=== PATIENT | female | born 1950 | race Asian ===

== ENCOUNTER 2018-06-16 05:47 | Inpatient (IN) | payer MEDICARE, MEDICAID ==
[~2018-06-16] VITALS: Ht 165.1 cm; Wt 72.6 kg
[2018-06-16] VITALS (7 sets, daily range): BP systolic 117–134; BP diastolic 65–89
--- NOTE | 2018-06-16 05:52 | Emergency Room Report ---
History of Present Illness General Chief Complaint: Chest Pain Source: Patient, EMS Present Illness HPI This is 67-year-old Telugu female with a history of high blood pressure and CAD. She had a stent placed 10 years ago. She presents with chief point of chest pain. She woke with chest pain about an hour and a half ago. Pain is in the midsternal going to the back. Pain was 8 out of 10. She called 911. She received nitroglycerin and aspirin. Pain much better now. No nausea no vomiting. No fever chills. No diaphoresis. Pain is sharp in nature. Allergies: Coded Allergies: No Known Allergies (Unverified , 06/16/18) Patient History Past Medical History: see triage record, old chart reviewed Past Surgical History: other Pertinent Family History: none Social History: Denies: smoking Last Menstrual Period: n/a Now: No Immunizations: other Reviewed Nursing Documentation: PMH: Agreed; PSxH: Agreed Review of Systems Eye: Denies: eye pain, blurred vision ENT: Denies: ear pain, nose congestion, throat swelling Respiratory: Denies: cough, shortness of breath Cardiovascular: Reports: chest pain; Denies: palpitations Gastrointestinal: Denies: abdominal pain, diarrhea, nausea, vomiting Musculoskeletal: Denies: back pain, joint pain Skin: Denies: rash Neurological: Denies: headache, numbness Endocrine: Denies: increased thirst, increased urine Hematologic/Lymphatic: Denies: easy bruising All Other Systems: negative except mentioned in HPI Physical Exam Vital Signs Date Time Temp Pulse Resp B/P (MAP) Pulse Ox O2 Delivery O2 Flow Rate FiO2 06/16/18 05:36 98.8 68 20 146/98 99 Room Air vitals normal Sp02 EP Interpretation: reviewed, normal General Appearance: well appearing, no apparent distress, alert Head: normocephalic, atraumatic Eyes: bilateral eye PERRL, bilateral eye EOMI ENT: hearing grossly normal, normal pharynx Neck: full range of motion, supple, no meningismus Respiratory: chest non-tender, lungs clear, normal breath sounds Cardiovascular #1: regular rate, rhythm, no murmur Gastrointestinal: normal bowel sounds, non tender, no mass, no organomegaly, no bruit, non-distended Musculoskeletal: back normal, gait/station normal, normal range of motion Psychiatric: mood/affect normal Skin: warm/dry Medical Decision Making Diagnostic Impression: Primary Impression: Chest pain Qualified Codes: R07.9 - Chest pain, unspecified Additional Impression: ACS (acute coronary syndrome) ER Course Patient with chest pain. She has risk factor with previous stents. Pain resolved after nitroglycerin and aspirin here. Based on her risk factor, she will be admitted versus transfer based on insurance. Labs, chest x-ray, EKG ordered. Patient will be admitted here. I contacted Dr. Olmstead for admission. EKG Diagnostic Results Rate: normal Rhythm: NSR ST Segments: no acute changes Rhythm Strip Diag. Results Rhythm Strip Time: 05:51 EP Interpretation: yes Rate: 68 Rhythm: NSR, no PVC's, no ectopy Chest X-Ray Diagnostic Results Chest X-Ray Diagnostic Results : Chest X-Ray Ordered: Yes # of Views/Limited/Complete: 1 View Indication: Chest Pain EP Interpretation: Yes Interpretation: no consolidation, no effusion, no pneumothorax, no acute cardiopulmonary disease Impression: No acute disease Electronically Signed by: Yimi Gomez MD Last Vital Signs Date Time Temp Pulse Resp B/P (MAP) Pulse Ox O2 Delivery O2 Flow Rate FiO2 06/16/18 05:36 98.8 68 20 146/98 99 Room Air Status: improved Disposition: ADMITTED INPATIENT Condition: Serious Scripts Unable to Obtain Active Prescriptions or Reported Meds Yimi Gomez MD Jun 16, 2018 05:52
[2018-06-16] MEDS ORDERED: Nitroglycerin 2% oint pkt TOPIC ONE (06:00)
[2018-06-16 06:06] LABS: BASOPHILS % (AUTO) 0.2 % (0.0-2.0); EOSINOPHILS % (AUTO) 0.1 % (0.0-3.0); HEMATOCRIT 41.1 % (37.0-47.0); LYMPHOCYTES % (AUTO) 9.9 % (20.0-45.0); MEAN CORPUSCULAR VOLUME 89 FL (80-99); MONOCYTES % (AUTO) 5.6 % (1.0-10.0); NEUTROPHILS % (AUTO) 84.1 % (45.0-75.0); PLATELET COUNT 207 K/UL (150-450); RED BLOOD COUNT 4.61 M/UL (4.20-5.40); RED CELL DISTRIBUTION WIDTH 10.9 % (11.6-14.8); WHITE BLOOD COUNT 11.7 K/UL (4.8-10.8)
[2018-06-16 06:14] LABS: ANION GAP 9 mmol/L (5-15); BLOOD UREA NITROGEN 21 mg/dL (7-18); CALCIUM 8.6 MG/DL (8.5-10.1); CARBON DIOXIDE 26 MMOL/L (21-32); CHLORIDE 105 MMOL/L (98-107); CREATININE 0.6 MG/DL (0.55-1.30); POTASSIUM 4.1 MMOL/L (3.5-5.1); SODIUM 139 MMOL/L (136-145)
[2018-06-16 06:28] LABS: ALANINE AMINOTRANSFERASE 46 U/L (12-78); ALBUMIN 3.4 G/DL (3.4-5.0); ALBUMIN/GLOBULIN RATIO 0.8 (1.0-2.7); ALKALINE PHOSPHATASE 175 U/L (46-116); ASPARTATE AMINO TRANSFERASE 67 U/L (15-37); BILIRUBIN,TOTAL 0.7 MG/DL (0.2-1.0); CKMB 1.1 NG/ML (0.0-3.6); CREATINE KINASE 65 U/L (26-308)
[2018-06-16] MEDS ORDERED: dilTIAZem HCl 25mg/5ml Inj IV PRN (07:15)
[2018-06-16] MEDS ORDERED: Nitroglycerin Subl 0.4mg tab SL PRN (07:15)
[2018-06-16] MEDS ORDERED: Miralax 17gm pkt ORAL PRN (07:15)
[2018-06-16] MEDS ORDERED: Albuterol/Ipratropium 3ml neb HHN PRN (07:15)
[2018-06-16] MEDS ORDERED: Morphine Sulfate 4mg/ml Inj (IV/IM USE ONLY) IVP PRN (07:15)
[2018-06-16] MEDS ORDERED: Ketorolac 30mg Inj IV PRN (07:15)
[2018-06-16] MEDS ORDERED: Enalaprilat 2.5mg/2ml Inj IV PRN (07:15)
[2018-06-16] MEDS ORDERED: ALENDRONAT70 MG/75 M PO (09:46)
[2018-06-16] MEDS ORDERED: LEVOCARNITINE330 MG ORAL (09:46)
[2018-06-16] MEDS ORDERED: DICYCLOMINE HCL20 M1 PO (09:46)
[2018-06-16] MEDS ORDERED: VITAMIN D400 INTLU ORAL (09:46)
[2018-06-16] MEDS ORDERED: METOPROLOL SUCC25 MG ORAL (09:46)
[2018-06-16] MEDS ORDERED: ATORVASTATIN CA20 MG ORAL (09:46)
[2018-06-16] MEDS ORDERED: LEVOCARNITINE330 M1 PO (09:46)
[2018-06-16] MEDS ORDERED: DIPHENOXYLATE-1 EACH PO (09:46)
[2018-06-16] MEDS ORDERED: OMEPRAZOLE20 M2 ORAL (09:46)
[2018-06-16] MEDS ORDERED: ASPIRIN EC81 MG ORAL (09:46)
[2018-06-16] MEDS ORDERED: VASCAZEN CAPSU1 EACH PO (09:46)
[2018-06-16] MEDS ORDERED: LOSARTAN POTAS100 MG ORAL (09:46)
[2018-06-16] MEDS: Aspirin Baby 81mg ORAL SCH (10:30)
[2018-06-16] MEDS: Heparin 5000 units/ml inj SUBQ SCH ×2 (10:31→23:11)
--- NOTE | 2018-06-16 13:47 | Diagnostic Imaging Report ---
Indication: Chest pain Comparison: None A single view chest radiograph was obtained. Findings: Vascular congestion mild interstitial edema suspected. Heart is enlarged. Aorta is mildly enlarged. Bones are osteopenic. IMPRESSION: Suspected CHF
--- NOTE | 2018-06-16 15:12 | Cardiology Report ---
APPROVED REPORT EXAM: Two-dimensional and M-mode echocardiogram with Doppler and color Doppler. INDICATION Left ventricular function M-Mode DIMENSIONS IVSd1.3 (0.7-1.1cm)Left Atrium (MM)3.7 (1.6-4.0cm) LVDd3.1 (3.5-5.6cm)Aortic Root2.7 (2.0-3.7cm) PWd1.5 (0.7-1.1cm)Aortic Cusp Exc.2.3 (1.5-2.0cm) LVDs1.6 (2.5-4.0cm) PWs1.4 cm Normal left ventricular chamber size, systolic function and wall motion. Left ventricular ejection fraction estimated to be 60 %. Mild left ventricular hypertrophy. Anterior Echo-free space, may be due to pericardial fat or effusion. All other cardiac chamber sizes are within normal limits. Focal aortic valve sclerosis with adequate cusp excursion. Thickened mitral valve leaflets with normal excursion. Mild mitral annulus and aortic root calcification. Pulmonic valve not well visualized. Normal tricuspid valve structure. IVC measures at 2.0 cm with physiological collapse, suggestive of increased RA pressure. A color flow and spectral Doppler study was performed and revealed: No aortic insufficiency. No mitral regurgitation. Mitral diastolic velocities suggest mild left ventricular diastolic dysfunction (Grade I). Mild tricuspid regurgitation. Tricuspid systolic velocities suggests peak right ventricular systolic pressure of 46 mmHg, consistent with moderate pulmonary hypertension. Trace pulmonic regurgitation present.
--- NOTE | 2018-06-16 15:57 | Cardiology Report ---
APPROVED REPORT EKG Measurement Heart [id number] Normal sinus rhythm Normal ECG
[2018-06-17] VITALS: BP 152/85
[2018-06-17 07:54] LABS: BASOPHILS % (AUTO) 0.2 % (0.0-2.0); EOSINOPHILS % (AUTO) 0.1 % (0.0-3.0); HEMATOCRIT 41.8 % (37.0-47.0); HEMOGLOBIN 14.2 G/DL (12.0-16.0); LYMPHOCYTES % (AUTO) 13.9 % (20.0-45.0); MEAN CORPUSCULAR VOLUME 89 FL (80-99); MONOCYTES % (AUTO) 7.7 % (1.0-10.0); NEUTROPHILS % (AUTO) 78.1 % (45.0-75.0); PLATELET COUNT 219 K/UL (150-450); RED BLOOD COUNT 4.68 M/UL (4.20-5.40); RED CELL DISTRIBUTION WIDTH 11.2 % (11.6-14.8); WHITE BLOOD COUNT 8.2 K/UL (4.8-10.8)
[2018-06-17 08:00] VITALS: BP 122/82
--- NOTE | 2018-06-17 08:02 | Consultation ---
History of Present Illness General Date patient seen: Jun 17, 2018 Time patient seen: 07:00 Chief Complaint: Chest Pain Referring physician: dr Olmstead Reason for Consultation: chest pain Present Illness HPI 67 y/old female with PMH of hypertension, hyperlipidemia, coronary artery disease with stent placement about 10 years ago, presented to emergency department with complaint of chest pain. Pain located midsternally and radiated to the back , sharp , 8 out of 10 on a scale of 1-10. Patient called paramedics . En route to the hospital , she received nitroglycerin and aspirin; pain improved . No nausea no vomiting No fever no chills No diaphoresis No shortness of breath. Upon evaluation vital signs revealed slightly elevated blood pressure 146/98, pulse oximetry stable on room air. Laboratory workup revealed mild leukocytosis 11.7. Stable hemoglobin and hematocrit. Troponin negative. EKG revealed normal sinus rhythm , no acute ischemic changes. Stable electrolytes. BUN 21 , creatinine 0.6 Glucose 166 AST 67. Chest x-ray revealed vascular congestion and mild interstitial edema, probable CHF. patient was admitted for further management. This am denies chest pain, reports productive cough Allergies: Coded Allergies: No Known Allergies (Unverified , 06/16/18) Medication History Scheduled Aspirin Ec* (Aspirin Ec*), 81 MG ORAL DAILY, (Reported) Atorvastatin Calcium* (Atorvastatin Calcium*), 20 MG ORAL BEDTIME, (Reported) Levocarnitine (Levocarnitine), 990 MG ORAL THREE TIMES A DAY, (Reported) Losartan Potassium (Losartan Potassium), 25 MG ORAL DAILY, (Reported) Metoprolol Succinate* (Metoprolol Succinate*), 25 MG ORAL DAILY, (Reported) Omeprazole (Omeprazole), 20 MG ORAL DAILY, (Reported) Vitamin D (Vitamin D3), 2,000 UNITS ORAL DAILY, (Reported) Miscellaneous Medications Alendronate Sodium (Alendronate Sodium), 70 MG PO, (Reported) Dicyclomine Hcl (Dicyclomine Hcl), 20 MG PO, (Reported) Diphenoxylate Hcl/Atropine (Diphenoxylate-Atropine Tablet), 1 EACH PO, (Reported ) Levocarnitine (levOCARNitine), 5 MG PO, (Reported) [place]-3S/Dha/Epa/Fish Oil (Vascazen Capsule), 1 EACH PO, (Reported) Patient History Healthcare decision maker [place] Resuscitation status Full Code Advanced Directive on File Past Medical/Surgical History Past Medical/Surgical History: (1) CAD S/P percutaneous coronary angioplasty (2) Hyperlipidemia (3) HTN (hypertension) Review of Systems Constitutional: Reports: weakness Eye: Reports: no symptoms ENT: Reports: no symptoms Respiratory: Reports: see HPI Cardiovascular: Reports: see HPI Gastrointestinal: Reports: no symptoms Genitourinary: Reports: no symptoms Musculoskeletal: Reports: no symptoms Skin: Reports: no symptoms Psychiatric: Reports: no symptoms Neurological: Reports: no symptoms Endocrine: Reports: no symptoms ROS Narrative limited due to limited Vietnamese from patient Physical Exam General Appearance: no apparent distress, alert - awake, responsive, Lines, tubes and drains: peripheral Neck: non-tender, supple Respiratory/Chest: lungs clear, no respiratory distress, no accessory muscle use Cardiovascular/Chest: normal peripheral pulses, normal rate, regular rhythm - SR on tele Abdomen: normal bowel sounds, non tender, soft Extremities: normal range of motion, non-tender, no calf tenderness, normal capillary refill Skin Exam: warm/dry Neurologic: no motor/sensory deficits, alert, oriented x 3, responsive Musculoskeletal: normal muscle bulk Last 24 Hour Vital Signs Date Time Temp Pulse Resp B/P (MAP) Pulse Ox O2 Delivery O2 Flow Rate FiO2 06/17/18 04:00 70 06/17/18 00:00 73 06/17/18 00:00 97.9 87 20 152/85 (107) 99 06/16/18 23:18 Room Air 06/16/18 20:52 96.3 74 133/87 (102) 94 06/16/18 20:30 98.6 79 22 124/84 99 Room Air 06/16/18 20:00 73 06/16/18 18:58 98.6 74 22 117/80 99 Room Air 06/16/18 16:49 98.2 88 22 132/74 100 Room Air 06/16/18 12:02 98.2 78 20 129/65 99 Room Air 06/16/18 09:38 98.2 66 18 134/86 96 Room Air Intake and Output 06/16/18 06/17/18 18:59 06:59 Output Total 0 ml Balance 0 ml Output Urine Total 0 ml # Voids 1 Laboratory Tests Test 06/17/18 05:55 White Blood Count Pending Red Blood Count Pending Hemoglobin Pending Hematocrit Pending Mean Corpuscular Volume Pending Mean Corpuscular Hemoglobin Pending Mean Corpuscular Hemoglobin Concent Pending Red Cell Distribution Width Pending Platelet Count Pending Mean Platelet Volume Pending Neutrophils (%) (Auto) Pending Lymphocytes (%) (Auto) Pending Monocytes (%) (Auto) Pending Eosinophils (%) (Auto) Pending Basophils (%) (Auto) Pending Prothrombin Time Pending Prothromb Time International Ratio Pending Activated Partial Thromboplast Time Pending Troponin I Pending C-Reactive Protein, Quantitative Pending Triglycerides Level Pending Cholesterol Level Pending LDL Cholesterol Pending HDL Cholesterol Pending Cholesterol/HDL Ratio Pending Thyroid Stimulating Hormone (TSH) Pending Height (Feet): 5 Height (Inches): 5.00 Weight (Pounds): 160 Medications Current Medications Medications (Trade) Dose Ordered Sig/Eddie Route PRN Reason Start Time Stop Time Status Last Admin Dose Admin Acetaminophen (Tylenol) 650 mg Q4H PRN ORAL FEVER 06/16/18 07:15 07/16/18 07:14 Albuterol/ Ipratropium (Albuterol/ Ipratropium) 3 ml Q4H PRN HHN Shortness of Breath 06/16/18 07:15 06/21/18 07:14 Aspirin (ASA) 162 mg DAILY ORAL 06/16/18 09:00 07/16/18 08:59 06/16/18 10:30 Diltiazem HCl (Cardizem) 10 mg EVERY HOUR PRN IV heart rate more than 120, 06/16/18 07:15 07/16/18 07:14 Enalaprilat (Vasotec) 2.5 mg EVERY 6 HOURS PRN IV sbp more than 160 06/16/18 07:15 07/16/18 07:14 Heparin Sodium (Porcine) (Heparin 5000 units/ml) 5,000 units EVERY 12 HOURS SUBQ 06/16/18 09:00 07/16/18 08:59 06/16/18 23:11 Ketorolac Tromethamine (Toradol 30mg) 30 mg Q6H PRN IV moderate pain ( 4-6) 06/16/18 07:15 06/21/18 07:14 Morphine Sulfate (Morphine Sulfate) 2 mg Q4H PRN IVP severe Pain (Pain Scale 7-10) 06/16/18 07:15 06/23/18 07:14 06/17/18 06:50 Nitroglycerin (Ntg) 0.4 mg Q5M PRN SL Prn Chest Pain 06/16/18 07:15 07/16/18 07:14 Ondansetron HCl (Zofran) 4 mg Q6H PRN IVP Nausea & Vomiting 06/16/18 07:15 07/16/18 07:14 Pantoprazole (Protonix) 40 mg EVERY 12 HOURS ORAL 06/17/18 09:00 07/17/18 08:59 Polyethylene Glycol (Miralax) 17 gm DAILYPRN PRN ORAL Constipation 06/16/18 07:15 07/16/18 07:14 Temazepam (Restoril) 15 mg HSPRN PRN ORAL Insomnia 06/16/18 07:15 06/23/18 07:14 Assessment/Plan Status Narrative ASSESSMENT Chest pain , rule out ACS CAD with history of stent placement/PTCA HTN Hyperlipidemia Mild dehydration Elevated glucose Elevated LFT PLAN OF CARE tele Serial troponin ,EKG Echo Check pro BNP fup with CXR O2 as needed titrate, HHN prn ASA, BB ,Statin Nitro prn a/tussive prn pain management BP management with BB and optimize further prn check lipid panel ,TSH, HgA1c, TSH DVT, GI prophylaxis case discussed and evaluated by supervising physician Charlene Warner NP Jun 17, 2018 08:02
[2018-06-17 08:03] LABS: INR 0.9 (0.9-1.1)
[2018-06-17 08:29] LABS: CHOLESTEROL 122 MG/DL (< 200); HDL CHOLESTEROL 67 MG/DL (40-60); TRIGLYCERIDES 48 MG/DL (30-150)
[2018-06-17] MEDS: Metoprolol Succinate XL 25mg tab ORAL SCH (08:44)
[2018-06-17] MEDS: Aspirin Baby 81mg ORAL SCH (08:44)
[2018-06-17] MEDS: Heparin 5000 units/ml inj SUBQ SCH ×2 (08:45→20:35)
[2018-06-17] MEDS ORDERED: guaiFENesin w/Codeine 5ml Liq ud ORAL PRN (09:00)
--- NOTE | 2018-06-17 09:08 | Diagnostic Imaging Report ---
EXAM: XR Chest, 1 View CLINICAL HISTORY: SOB TECHNIQUE: Frontal view of the chest. COMPARISON: Cxr 06/16/18 FINDINGS: Lungs: Improved vascular congestion.. No consolidation. Pleural space: Unremarkable. No pneumothorax. Heart: Mild cardiomegaly. Mediastinum: Unremarkable. Bones/joints: Mild degenerative changes of the spine. IMPRESSION: Improved vascular congestion.
[2018-06-17 12:00] VITALS: BP 115/80
[2018-06-17] MEDS ORDERED: guaiFENesin 100mg/5ml Liq ud ORAL PRN (13:00)
--- NOTE | 2018-06-17 15:07 | Cardiology Progress Note ---
Assessment/Plan Assessment/Plan [id number] Objective Last 24 Hour Vital Signs Date Time Temp Pulse Resp B/P (MAP) Pulse Ox O2 Delivery O2 Flow Rate FiO2 06/17/18 12:00 97.0 64 20 115/80 (92) 94 06/17/18 12:00 69 06/17/18 09:00 Room Air 06/17/18 08:44 77 122/82 06/17/18 08:00 79 06/17/18 08:00 97.3 77 20 122/82 (95) 93 06/17/18 04:00 70 06/17/18 00:00 73 06/17/18 00:00 97.9 87 20 152/85 (107) 99 06/16/18 23:18 Room Air 06/16/18 20:52 96.3 74 133/87 (102) 94 06/16/18 20:30 98.6 79 22 124/84 99 Room Air 06/16/18 20:00 73 06/16/18 18:58 98.6 74 22 117/80 99 Room Air 06/16/18 16:49 98.2 88 22 132/74 100 Room Air Intake and Output 06/16/18 06/17/18 19:00 07:00 Output Total 0 ml Balance 0 ml Output Urine Total 0 ml # Voids 1 Laboratory Tests Test 06/17/18 05:55 White Blood Count 8.2 K/UL (4.8-10.8) Red Blood Count 4.68 M/UL (4.20-5.40) Hemoglobin 14.2 G/DL (12.0-16.0) Hematocrit 41.8 % (37.0-47.0) Mean Corpuscular Volume 89 FL (80-99) Mean Corpuscular Hemoglobin 30.4 PG (27.0-31.0) Mean Corpuscular Hemoglobin Concent 34.0 G/DL (32.0-36.0) Red Cell Distribution Width 11.2 % (11.6-14.8) L Platelet Count 219 K/UL (150-450) Mean Platelet Volume 6.3 FL (6.5-10.1) L Neutrophils (%) (Auto) 78.1 % (45.0-75.0) H Lymphocytes (%) (Auto) 13.9 % (20.0-45.0) L Monocytes (%) (Auto) 7.7 % (1.0-10.0) Eosinophils (%) (Auto) 0.1 % (0.0-3.0) Basophils (%) (Auto) 0.2 % (0.0-2.0) Prothrombin Time 9.8 SEC (9.30-11.50) Prothromb Time International Ratio 0.9 (0.9-1.1) Activated Partial Thromboplast Time 24 SEC (23-33) Hemoglobin A1c 5.9 % (4.3-6.0) Troponin I 0.010 ng/mL (0.000-0.056) C-Reactive Protein, Quantitative 1.0 mg/dL (0.00-0.90) H Pro-B-Type Natriuretic Peptide 109 pg/mL (0-125) Triglycerides Level 48 MG/DL (30-150) Cholesterol Level 122 MG/DL (< 200) LDL Cholesterol 49 mg/dL (<100) HDL Cholesterol 67 MG/DL (40-60) H Cholesterol/HDL Ratio 1.8 (3.3-4.4) L Thyroid Stimulating Hormone (TSH) 0.398 uiU/mL (0.358-3.740) Earl Melendez MD Jun 17, 2018 15:07
--- NOTE | 2018-06-17 15:14 | History & Physical ---
History and Physical History & Physicial Santos Olmstead MD Jun 17, 2018 15:14
[2018-06-17 16:00] VITALS: BP 112/81
[2018-06-17 20:00] VITALS: BP 119/85
[2018-06-17] MEDS ORDERED: Atorvastatin 20mg tab ORAL SCH (21:00)
[2018-06-18] VITALS (7 sets, daily range): BP systolic 103–135; BP diastolic 67–80
--- NOTE | 2018-06-18 | History and Physical Report ---
DATE OF ADMISSION: 06/16/2018 CHIEF COMPLAINT: Chest pain and shortness of breath. HISTORY OF PRESENT ILLNESS: This is a 67-year-old Faroese female with past medical history significant for hypertension, dyslipidemia, and coronary artery disease with history of stent placement over 10 years ago, who presented to the hospital complaining about chest pain. Woke up with the chest pain associated with shortness of breath. She stated that the pain is located in the midsternum area, radiated to the back, 8/10 in intensity. Subsequently, the patient was called EMS, which gave her nitroglycerin and aspirin, and then felt better. She denies any nausea or vomiting. She denies any fever, chills, or dysuria or frequency. Shortly after initial evaluation in the emergency room, the patient was admitted to the hospital with chest pain and possible acute coronary syndrome. PAST MEDICAL HISTORY/PAST SURGICAL HISTORY: As above. History of hypertension, dyslipidemia, and coronary artery disease with prior history of stent placement over 10 years ago. MEDICATIONS: Medications at home, please refer to medication reconciliation. ALLERGIES: No known drug allergies. SOCIAL HISTORY: The patient denies any smoking, alcohol, or drugs at this time. FAMILY HISTORY: Noncontributory. REVIEW OF SYSTEMS: Mostly as above. Denies any dysuria, frequency, or hematuria. Complained about chest pain. Denies any hemoptysis or hematochezia. Denies any bright red blood per rectum. Denies any loss of consciousness. PHYSICAL EXAMINATION: VITAL SIGNS: On admission, temperature 98.8, pulse of 68, respirations 20, and blood pressure 146/98. GENERAL: The patient is awake, responsive, in no acute distress. HEAD AND NECK: Pupils are equal and reactive to light. Anicteric. Neck was supple. No JVD. LUNGS: Good air entry. No wheezes or rales. HEART: S1 and S2. Regular rhythm. No murmurs or gallops. ABDOMEN: Soft, nondistended, and nontender. Positive bowel sounds. EXTREMITIES: No cyanosis, clubbing, or edema. NEUROLOGIC: Cranial nerves II through XII grossly intact. Motor is 5/5 in all extremities. RECTAL: Refused and deferred. GENITOURINARY: Refused and deferred. PSYCHIATRIC: Mood and affect is intact. LABORATORY AND DIAGNOSTIC DATA: On admission from the ER, WBC of 11.7, hemoglobin of 14, hematocrit of 41, and platelets is 207,000. First and second troponin is negative. Sodium 139, potassium 4.1, chloride 105, bicarb 20, BUN 21, and creatinine 0.6. Glucose is 166 and calcium is 8.6. AST of 67, ALT of 46, alkaline phosphatase of 175, total cholesterol is 122, CRP of 1.0, and hemoglobin A1c 5.9. Chest x-ray, suspected CHF. Repeat chest x-ray, improved vascular congestion. EKG was noted to be normotensive, ventricular rate of [address] elevation or T-wave inversion. ASSESSMENT: 1. Chest pain, possible acute coronary syndrome. 2. Coronary artery disease, status post PTCA with stent placement. 3. Dyslipidemia. 4. Hypertension. 5. The patient has elevated liver function as well. PLAN: Admit the patient to monitored unit. We will follow up laboratory. Discussed case with Dr. Earl Melendez from Cardiology and Dr. Golden from critical care. Code status is Full Code. DVT prophylaxis. Heparin subcutaneous. We will monitor the serial cardiac enzymes and if the enzymes are negative, consider to do a stress test. Santos Olmstead M.D. DR: WILL JOB#: [id number] CC:
--- NOTE | 2018-06-18 | Consultation ---
DATE OF CONSULTATION: 06/17/2018 CARDIOLOGY CONSULTATION CONSULTING PHYSICIAN: Earl Melendez M.D. REFERRING PHYSICIAN: Santos Olmstead M.D. REASON FOR REFERRAL: Chest pain. HISTORY OF PRESENT ILLNESS: This is a 67-year-old female, who has had a history of some kind of a cardiac catheterization a number of years ago at [facility], not sure although if she had any angioplasty or stents. The patient presented to the hospital with chest pain, tightness and pressure sensation in the center of chest, may be radiating to her head, which lasted approximately 15 minutes. She came to the emergency room, was admitted to the hospital. She indicates she was sweating a lot at that time. There is no PND. She has shortness of breath on exertion. There is no orthopnea and no palpitation. She has no occasional dizziness or lightheadedness on standing. The patient does walk on a regular basis. It is not clear if she actually gets any chest pain with activity, but she does have shortness of breath with activity according to herself. PAST MEDICAL HISTORY: Positive for high blood pressure and high cholesterol. No history of heart attack. No cancer. No stroke. No hepatitis or tuberculosis. No asthma or emphysema. No ulcers. No kidney problems, liver problems, thyroid problems, anemia, arthritis, HIV, or blood clots anywhere. She does have venous issues that she has had a doctor to deal with before. She is usually followed by mortgage protection specialist and has had a stress test as recently as a few months ago that was reportedly negative. REVIEW OF SYSTEMS: GASTROINTESTINAL: She has had nausea and she has had vomiting and she has had diarrhea. : Denies. PULMONARY: Denies. CONSTITUTIONAL: Denies, but she does have sweats. NEUROLOGICAL: Negative. ALLERGIES: She is not allergic to any medication. SOCIAL HISTORY: She does not smoke or drink alcoholic beverages. She lives at home. PHYSICAL EXAMINATION: GENERAL: Shows to be an elderly female, in no respiratory distress. NECK: Supple. No jugular venous distention. LUNGS: Clear to auscultation and percussion. CARDIAC: S1 is normal. S2 is normal. Regular rate and rhythm. No heaves, thrills, or gallops noted. ABDOMEN: Soft, nontender. Positive bowel sounds. EXTREMITIES: There is no clubbing, cyanosis, nor is there any edema. NEUROLOGICAL: She is awake, alert, responsive, in no apparent respiratory distress. LABORATORY AND DIAGNOSTIC DATA: Her blood tests show white count of 7.3, hemoglobin 11.1, and platelet count of 354. Three sets of cardiac enzymes are all negative. Amylase was 72, magnesium of 1.8. Phosphorus of 2.3. Sodium is 137, potassium 3.8, chloride 102, bicarbonate 22, BUN of 8, creatinine 0.9. Glucose of 154. Total cholesterol is 325 with LDL of 229, HDL of 77 and triglycerides of 135. INR is 1 and PTT of 27. Urinalysis shows 30 to 40 RBCs, 10 to 15 WBCs, many squamous epithelial noted. She has had cardiac enzymes that were negative on two separate occasions about a day apart. Only one total cholesterol of 122 with LDL of 49, HDL of 67. TSH is 0.38. ProBNP is only 109. A1c of 5.9. Sodium is 139, potassium 4.1, chloride 105, bicarb 26, BUN of 21, creatinine 0.6, glucose of 166. Alkaline phosphatase is 175 with albumin 3.4. INR is 0.9 and PTT of 24 with a white count of 8.2, hemoglobin 14.2, and platelet count 217. A chest x-ray performed in the emergency room shows improved vascular congestion. Echocardiogram performed yesterday shows ejection fraction 60%. Normal wall motion. Mild diastolic relaxation abnormality, pulmonary systolic pressure of 46. ASSESSMENT AND PLAN: 1. Chest pains. 2. Dyspnea on exertion. 3. History of venous issues. Dr. Olmstead, this patient was seen in cardiac consultation. She has had 2 bouts of chest pains at least that we know of, once here today that she states lasted approximately 1 hour, and one that she had at home yesterday. She will have a 3rd and 4th set of cardiac enzymes for now and because her chest pain is recurrent, I think it is reasonable to have a myocardial perfusion imaging performed. It is of note that her electrocardiogram has shown no significant ST-T wave abnormalities, although she does have a leftward directed axis, but no left axis deviation. The echocardiogram showed normal wall motion. Her cholesterol levels are not significantly elevated. Earl Melendez M.D. DR: LOPEZ JOB#: [id number] CC:
--- NOTE | 2018-06-18 07:33 | Pulmonology Progress Note ---
Assessment/Plan Assessment/Plan ASSESSMENT Chest pain possibly due to anxiety CAD with history of stent placement/PTCA HTN Hyperlipidemia Mild dehydration Elevated glucose Elevated LFT Anxiety disorder PLAN OF CARE tele serial troponin so far negative ,EKG no acute ischemic changes , thus r/out for acute [place] Echo with pEF, mild LVH RVSP of 46 c/w moderate pulm HTN , no WMA cardio follows pro BNP 109 O2 as needed titrate, HHN prn ASA, BB ,Statin stress test in am , if negative then chest pain possibly due to anxiety lipid panel stable Nitro prn venous Duplex BLE a/tussive prn pain management BP management with BB and optimize further prn - stable for now TSH WNL, [id number] DVT, GI prophylaxis psych follows anxiolytic prn case discussed and evaluated by supervising physician Subjective Allergies: Coded Allergies: No Known Allergies (Unverified , 06/16/18) Subjective denies chest pain, SOB pulse ox stable on RA Objective Last 24 Hour Vital Signs Date Time Temp Pulse Resp B/P (MAP) Pulse Ox O2 Delivery O2 Flow Rate FiO2 06/18/18 04:00 99.0 70 18 103/67 (79) 95 06/18/18 03:55 64 06/18/18 00:00 98.7 69 18 114/76 (89) 95 06/17/18 23:48 71 06/17/18 21:00 Room Air 06/17/18 20:51 83 06/17/18 20:00 98.4 70 18 119/85 (96) 95 06/17/18 16:00 98.2 63 20 112/81 (91) 94 06/17/18 16:00 67 06/17/18 12:00 97.0 64 20 115/80 (92) 94 06/17/18 12:00 69 06/17/18 09:00 Room Air 06/17/18 08:44 77 122/82 06/17/18 08:00 79 06/17/18 08:00 97.3 77 20 122/82 (95) 93 Intake and Output 06/17/18 06/18/18 19:00 07:00 Intake Total 230 ml 60 ml Output Total 320 ml Balance -90 ml 60 ml Intake Oral 230 ml Other 60 ml Output Urine Total 320 ml # Voids 4 1 Objective General Appearance: no apparent distress, alert - awake, responsive, Lines, tubes and drains: peripheral Neck: non-tender, supple Respiratory/Chest: lungs clear, no respiratory distress, no accessory muscle use Cardiovascular/Chest: normal peripheral pulses, normal rate, regular rhythm - SR on tele Abdomen: normal bowel sounds, non tender, soft Extremities: normal range of motion, non-tender, no calf tenderness, normal capillary refill Skin Exam: warm/dry Neurologic: no motor/sensory deficits, alert, oriented x 3, responsive Musculoskeletal: normal muscle bulk Current Medications Medications (Trade) Dose Ordered Sig/Eddie Route PRN Reason Start Time Stop Time Status Last Admin Dose Admin Acetaminophen (Tylenol) 650 mg Q4H PRN ORAL FEVER 06/16/18 07:15 07/16/18 07:14 06/17/18 23:10 Albuterol/ Ipratropium (Albuterol/ Ipratropium) 3 ml Q4H PRN HHN Shortness of Breath 06/16/18 07:15 06/21/18 07:14 Aspirin (ASA) 162 mg DAILY ORAL 06/16/18 09:00 07/16/18 08:59 06/17/18 08:44 Atorvastatin Calcium (Lipitor) 20 mg BEDTIME ORAL 06/17/18 21:00 07/17/18 20:59 06/17/18 20:33 Diltiazem HCl (Cardizem) 10 mg EVERY HOUR PRN IV heart rate more than 120, 06/16/18 07:15 07/16/18 07:14 Enalaprilat (Vasotec) 2.5 mg EVERY 6 HOURS PRN IV sbp more than 160 06/16/18 07:15 07/16/18 07:14 Guaifenesin (Robitussin) 100 mg Q4H PRN ORAL For Cough 06/17/18 13:00 07/17/18 12:59 06/17/18 22:04 Heparin Sodium (Porcine) (Heparin 5000 units/ml) 5,000 units EVERY 12 HOURS SUBQ 06/16/18 09:00 07/16/18 08:59 06/17/18 20:35 Ketorolac Tromethamine (Toradol 30mg) 30 mg Q6H PRN IV moderate pain ( 4-6) 06/16/18 07:15 06/21/18 07:14 Metoprolol Succinate (Toprol XL) 25 mg DAILY ORAL 06/17/18 09:00 07/17/18 08:59 Morphine Sulfate (Morphine Sulfate) 2 mg Q4H PRN IVP severe Pain (Pain Scale 7-10) 06/16/18 07:15 06/23/18 07:14 06/17/18 06:50 Nitroglycerin (Ntg) 0.4 mg Q5M PRN SL Prn Chest Pain 06/16/18 07:15 07/16/18 07:14 Ondansetron HCl (Zofran) 4 mg Q6H PRN IVP Nausea & Vomiting 06/16/18 07:15 07/16/18 07:14 Pantoprazole (Protonix) 40 mg EVERY 12 HOURS ORAL 06/17/18 09:00 07/17/18 08:59 06/17/18 20:33 Polyethylene Glycol (Miralax) 17 gm DAILYPRN PRN ORAL Constipation 06/16/18 07:15 07/16/18 07:14 Regadenoson (Lexiscan) 0.4 mg ONCE PRN IV STRESS TEST 06/19/18 06:00 06/21/18 05:59 Temazepam (Restoril) 15 mg HSPRN PRN ORAL Insomnia 06/16/18 07:15 06/23/18 07:14 Charlene Warner NP Jun 18, 2018 07:33
[2018-06-18 07:49] LABS: BASOPHILS % (AUTO) 0.5 % (0.0-2.0); EOSINOPHILS % (AUTO) 0.2 % (0.0-3.0); HEMATOCRIT 39.7 % (37.0-47.0); HEMOGLOBIN 13.7 G/DL (12.0-16.0); LYMPHOCYTES % (AUTO) 14.7 % (20.0-45.0); MEAN CORPUSCULAR VOLUME 90 FL (80-99); MONOCYTES % (AUTO) 5.8 % (1.0-10.0); NEUTROPHILS % (AUTO) 78.7 % (45.0-75.0); PLATELET COUNT 227 K/UL (150-450); RED BLOOD COUNT 4.41 M/UL (4.20-5.40); RED CELL DISTRIBUTION WIDTH 11.1 % (11.6-14.8); WHITE BLOOD COUNT 9.7 K/UL (4.8-10.8)
[2018-06-18 08:39] LABS: ALANINE AMINOTRANSFERASE 1942 U/L (12-78); ALBUMIN 3.2 G/DL (3.4-5.0); ALBUMIN/GLOBULIN RATIO 0.9 (1.0-2.7); ALKALINE PHOSPHATASE 372 U/L (46-116); ANION GAP 8 mmol/L (5-15); ASPARTATE AMINO TRANSFERASE 673 U/L (15-37); BILIRUBIN,TOTAL 1.1 MG/DL (0.2-1.0); BLOOD UREA NITROGEN 17 mg/dL (7-18); CALCIUM 8.2 MG/DL (8.5-10.1); CARBON DIOXIDE 27 MMOL/L (21-32); CHLORIDE 107 MMOL/L (98-107); CREATININE 0.7 MG/DL (0.55-1.30); POTASSIUM 4.3 MMOL/L (3.5-5.1); SODIUM 142 MMOL/L (136-145)
[2018-06-18 08:51] LABS: BILIRUBIN,DIRECT 0.5 MG/DL (0.0-0.3)
[2018-06-18] MEDS: Aspirin Baby 81mg ORAL SCH (09:28)
[2018-06-18] MEDS: Heparin 5000 units/ml inj SUBQ SCH ×2 (09:30→20:32)
[2018-06-18] MEDS: Metoprolol Succinate XL 25mg tab ORAL SCH (10:15)
--- NOTE | 2018-06-18 14:44 | Cardiology Progress Note ---
Assessment/Plan Assessment/Plan 1. Chest pains. 2. Dyspnea on exertion. 3. History of venous issues. 4. Abnormal LFTS dc statin for now in light of elevated of abn lfts will have stress test with exercise if possible repeat lfts Subjective Cardiovascular: Denies: chest pain, lightheadedness, palpitations Respiratory: Denies: shortness of breath Gastrointestinal/Abdominal: Denies: abdominal pain Genitourinary: Denies: burning Objective Last 24 Hour Vital Signs Date Time Temp Pulse Resp B/P (MAP) Pulse Ox O2 Delivery O2 Flow Rate FiO2 06/18/18 12:00 97.9 79 20 135/67 (89) 100 06/18/18 12:00 77 06/18/18 10:15 72 125/87 06/18/18 09:00 Room Air 06/18/18 08:00 97.9 74 20 110/79 (89) 94 06/18/18 08:00 80 06/18/18 04:00 99.0 70 18 103/67 (79) 95 06/18/18 03:55 64 06/18/18 00:00 98.7 69 18 114/76 (89) 95 06/17/18 23:48 71 06/17/18 21:00 Room Air 06/17/18 20:51 83 06/17/18 20:00 98.4 70 18 119/85 (96) 95 06/17/18 16:00 98.2 63 20 112/81 (91) 94 06/17/18 16:00 67 General Appearance: alert Neck: supple Cardiovascular: normal rate, regular rhythm Respiratory/Chest: lungs clear Abdomen: normal bowel sounds, non tender, soft Extremities: no swelling Intake and Output 06/17/18 06/18/18 18:59 06:59 Intake Total 230 ml 60 ml Output Total 320 ml Balance -90 ml 60 ml Intake Oral 230 ml Other 60 ml Output Urine Total 320 ml # Voids 4 1 Laboratory Tests Test 06/18/18 05:50 White Blood Count 9.7 K/UL (4.8-10.8) Red Blood Count 4.41 M/UL (4.20-5.40) Hemoglobin 13.7 G/DL (12.0-16.0) Hematocrit 39.7 % (37.0-47.0) Mean Corpuscular Volume 90 FL (80-99) Mean Corpuscular Hemoglobin 31.0 PG (27.0-31.0) Mean Corpuscular Hemoglobin Concent 34.4 G/DL (32.0-36.0) Red Cell Distribution Width 11.1 % (11.6-14.8) L Platelet Count 227 K/UL (150-450) Mean Platelet Volume 6.5 FL (6.5-10.1) Neutrophils (%) (Auto) 78.7 % (45.0-75.0) H Lymphocytes (%) (Auto) 14.7 % (20.0-45.0) L Monocytes (%) (Auto) 5.8 % (1.0-10.0) Eosinophils (%) (Auto) 0.2 % (0.0-3.0) Basophils (%) (Auto) 0.5 % (0.0-2.0) Sodium Level 142 MMOL/L (136-145) Potassium Level 4.3 MMOL/L (3.5-5.1) Chloride Level 107 MMOL/L (98-107) Carbon Dioxide Level 27 MMOL/L (21-32) Anion Gap 8 mmol/L (5-15) Blood Urea Nitrogen 17 mg/dL (7-18) Creatinine 0.7 MG/DL (0.55-1.30) Estimat Glomerular Filtration Rate > 60 mL/min (>60) Glucose Level 146 MG/DL (74-106) H Calcium Level 8.2 MG/DL (8.5-10.1) L Total Bilirubin 1.1 MG/DL (0.2-1.0) H Direct Bilirubin 0.5 MG/DL (0.0-0.3) H Aspartate Amino Transf (AST/SGOT) 673 U/L (15-37) H Alanine Aminotransferase (ALT/SGPT) 1942 U/L (12-78) H Alkaline Phosphatase 372 U/L (46-116) H Troponin I 0.000 ng/mL (0.000-0.056) Total Protein 6.8 G/DL (6.4-8.2) Albumin 3.2 G/DL (3.4-5.0) L Globulin 3.6 g/dL Albumin/Globulin Ratio 0.9 (1.0-2.7) L Earl Melendez MD Jun 18, 2018 14:44
--- NOTE | 2018-06-18 22:09 | Internal Med Progress Note ---
Subjective Physician Name Santos Olmstead Attending Physician Santos Olmstead MD Current Medications Medications (Trade) Dose Ordered Sig/Eddie Route PRN Reason Start Time Stop Time Status Last Admin Dose Admin Acetaminophen (Tylenol) 650 mg Q4H PRN ORAL FEVER 06/16/18 07:15 07/16/18 07:14 06/17/18 23:10 Albuterol/ Ipratropium (Albuterol/ Ipratropium) 3 ml Q4H PRN HHN Shortness of Breath 06/16/18 07:15 06/21/18 07:14 Aspirin (ASA) 162 mg DAILY ORAL 06/16/18 09:00 07/16/18 08:59 06/18/18 09:28 Diltiazem HCl (Cardizem) 10 mg EVERY HOUR PRN IV heart rate more than 120, 06/16/18 07:15 07/16/18 07:14 Enalaprilat (Vasotec) 2.5 mg EVERY 6 HOURS PRN IV sbp more than 160 06/16/18 07:15 07/16/18 07:14 Guaifenesin (Robitussin) 100 mg Q4H PRN ORAL For Cough 06/17/18 13:00 07/17/18 12:59 06/17/18 22:04 Heparin Sodium (Porcine) (Heparin 5000 units/ml) 5,000 units EVERY 12 HOURS SUBQ 06/16/18 09:00 07/16/18 08:59 06/18/18 20:32 Ketorolac Tromethamine (Toradol 30mg) 30 mg Q6H PRN IV moderate pain ( 4-6) 06/16/18 07:15 06/21/18 07:14 Metoprolol Succinate (Toprol XL) 25 mg DAILY ORAL 06/17/18 09:00 07/17/18 08:59 06/18/18 10:15 Morphine Sulfate (Morphine Sulfate) 2 mg Q4H PRN IVP severe Pain (Pain Scale 7-10) 06/16/18 07:15 06/23/18 07:14 06/17/18 06:50 Nitroglycerin (Ntg) 0.4 mg Q5M PRN SL Prn Chest Pain 06/16/18 07:15 07/16/18 07:14 Ondansetron HCl (Zofran) 4 mg Q6H PRN IVP Nausea & Vomiting 06/16/18 07:15 07/16/18 07:14 Pantoprazole (Protonix) 40 mg EVERY 12 HOURS ORAL 06/17/18 09:00 07/17/18 08:59 06/18/18 20:32 Polyethylene Glycol (Miralax) 17 gm DAILYPRN PRN ORAL Constipation 06/16/18 07:15 07/16/18 07:14 Regadenoson (Lexiscan) 0.4 mg ONCE PRN IV STRESS TEST 06/19/18 06:00 06/21/18 05:59 Temazepam (Restoril) 15 mg HSPRN PRN ORAL Insomnia 06/16/18 07:15 06/23/18 07:14 Allergies: Coded Allergies: No Known Allergies (Unverified , 06/16/18) Subjective awake, alert, responsive, No CP or SOB Objective Last Vital Signs Date Time Temp Pulse Resp B/P (MAP) Pulse Ox O2 Delivery O2 Flow Rate FiO2 06/18/18 21:00 Room Air 06/18/18 20:00 98.6 75 18 111/72 (85) 95 06/16/18 05:50 99 Laboratory Tests Test 06/18/18 05:50 White Blood Count 9.7 K/UL (4.8-10.8) Red Blood Count 4.41 M/UL (4.20-5.40) Hemoglobin 13.7 G/DL (12.0-16.0) Hematocrit 39.7 % (37.0-47.0) Mean Corpuscular Volume 90 FL (80-99) Mean Corpuscular Hemoglobin 31.0 PG (27.0-31.0) Mean Corpuscular Hemoglobin Concent 34.4 G/DL (32.0-36.0) Red Cell Distribution Width 11.1 % (11.6-14.8) L Platelet Count 227 K/UL (150-450) Mean Platelet Volume 6.5 FL (6.5-10.1) Neutrophils (%) (Auto) 78.7 % (45.0-75.0) H Lymphocytes (%) (Auto) 14.7 % (20.0-45.0) L Monocytes (%) (Auto) 5.8 % (1.0-10.0) Eosinophils (%) (Auto) 0.2 % (0.0-3.0) Basophils (%) (Auto) 0.5 % (0.0-2.0) Sodium Level 142 MMOL/L (136-145) Potassium Level 4.3 MMOL/L (3.5-5.1) Chloride Level 107 MMOL/L (98-107) Carbon Dioxide Level 27 MMOL/L (21-32) Anion Gap 8 mmol/L (5-15) Blood Urea Nitrogen 17 mg/dL (7-18) Creatinine 0.7 MG/DL (0.55-1.30) Estimat Glomerular Filtration Rate > 60 mL/min (>60) Glucose Level 146 MG/DL (74-106) H Calcium Level 8.2 MG/DL (8.5-10.1) L Total Bilirubin 1.1 MG/DL (0.2-1.0) H Direct Bilirubin 0.5 MG/DL (0.0-0.3) H Aspartate Amino Transf (AST/SGOT) 673 U/L (15-37) H Alanine Aminotransferase (ALT/SGPT) 1942 U/L (12-78) H Alkaline Phosphatase 372 U/L (46-116) H Troponin I 0.000 ng/mL (0.000-0.056) Total Protein 6.8 G/DL (6.4-8.2) Albumin 3.2 G/DL (3.4-5.0) L Globulin 3.6 g/dL Albumin/Globulin Ratio 0.9 (1.0-2.7) L Intake and Output 06/17/18 06/18/18 19:00 07:00 Intake Total 230 ml 60 ml Output Total 320 ml Balance -90 ml 60 ml Intake Oral 230 ml Other 60 ml Output Urine Total 320 ml # Voids 4 1 Objective General: No acute distress, awake and alert HEENT: NCAT, sclera anicteric, PERRL, EOMI. Neck: Supple, no significant jugular venous distention, Lungs: Good inspiratory effort, Bilateral air entry, no Wheeze or Rales. Heart: Regular rate and rhythm, normal S1/S2, no murmurs/gallops Abdomen: soft, nontender, nondistended. Normoactive bowel sounds. / Rectal: Refused and deferred. Extremities: No Cyanosis , clubbing or edema. Neuro: A&O x 3, Able to move all extremities Skin: warm, no rashes or lesions Psych: Normal mood and affect Assessment/Plan Assessment/Plan 1. Chest pain, possible acute coronary syndrome. 2. Coronary artery disease, status post PTCA with stent placement. 3. Dyslipidemia. 4. Hypertension. 5. Abnormal LFT PLAN: In monitored unit. Follow up laboratory in AM Dr. Earl Melendez from Cardiology Dr. Golden from Pulmonary / critical care. Code status: Full Code. DVT prophylaxis: Heparin subcutaneous. stress test in AM US abdomen GI consult with Dr. Joy Mckenna Lipitor. . Santos Olmstead MD Jun 18, 2018 22:09
[2018-06-19 04:00] VITALS: BP 122/84
[2018-06-19] MEDS ORDERED: Lexiscan 0.4mg/5ml syringe IV PRN (06:00)
[2018-06-19 08:00] VITALS: BP 120/89
[2018-06-19 08:21] LABS: ALANINE AMINOTRANSFERASE 1267 U/L (12-78); ALBUMIN 3.1 G/DL (3.4-5.0); ALBUMIN/GLOBULIN RATIO 0.7 (1.0-2.7); ALKALINE PHOSPHATASE 334 U/L (46-116); ANION GAP 7 mmol/L (5-15); ASPARTATE AMINO TRANSFERASE 248 U/L (15-37); BILIRUBIN,TOTAL 0.8 MG/DL (0.2-1.0); BLOOD UREA NITROGEN 15 mg/dL (7-18); CALCIUM 8.6 MG/DL (8.5-10.1); CARBON DIOXIDE 26 MMOL/L (21-32); CHLORIDE 106 MMOL/L (98-107); CREATININE 0.7 MG/DL (0.55-1.30); SODIUM 139 MMOL/L (136-145)
[2018-06-19] MEDS: Metoprolol Succinate XL 25mg tab ORAL SCH (09:00)
[2018-06-19] MEDS: Heparin 5000 units/ml inj SUBQ SCH ×2 (09:00→21:56)
[2018-06-19] MEDS: Aspirin Baby 81mg ORAL SCH (09:00)
--- NOTE | 2018-06-19 10:09 | General Progress Note ---
Assessment/Plan Assessment/Plan GI CONSULT Assessment - Abrupt symptomatic rise in LFT, suggestive of passed gallstone - CAD Recommendations - Cardiology evaluation - Follow LFT - Await abd Ultrasound - check hepatitis serologies and CK total Thank you Catia Hamilton MD Subjective Allergies: Coded Allergies: No Known Allergies (Unverified , 06/16/18) Objective Last 24 Hour Vital Signs Date Time Temp Pulse Resp B/P (MAP) Pulse Ox O2 Delivery O2 Flow Rate FiO2 06/19/18 08:00 97.5 72 17 120/89 (99) 94 06/19/18 04:00 64 06/19/18 04:00 97.2 66 18 122/84 (97) 95 06/19/18 00:00 72 06/18/18 23:33 98.7 67 18 124/80 (95) 95 06/18/18 21:00 Room Air 06/18/18 20:00 98.6 75 18 111/72 (85) 95 06/18/18 20:00 74 06/18/18 18:00 60 06/18/18 16:00 98.7 64 20 113/78 (90) 100 06/18/18 12:00 97.9 79 20 135/67 (89) 100 06/18/18 12:00 77 06/18/18 10:15 72 125/87 Intake and Output 06/18/18 06/19/18 19:00 07:00 Intake Total 480 ml 480 ml Output Total 2000 ml 2000 ml Balance -1520 ml -1520 ml Intake Oral 480 ml 480 ml Output Urine Total 0 ml Other 2000 ml 2000 ml # Voids 3 2 Laboratory Tests 06/19/18 07:10: Sodium Level 139, Potassium Level 4.0, Chloride Level 106, Carbon Dioxide Level 26, Anion Gap 7, Blood Urea Nitrogen 15, Creatinine 0.7, Estimat Glomerular Filtration Rate > 60, Glucose Level 133H, Calcium Level 8.6, Total Bilirubin 0.8 , Aspartate Amino Transf (AST/SGOT) 248H, Alanine Aminotransferase (ALT/SGPT) 1267H, Alkaline Phosphatase 334H, Total Protein 7.4, Albumin 3.1L, Globulin 4.3 , Albumin/Globulin Ratio 0.7L Height (Feet): 5 Height (Inches): 5.00 Weight (Pounds): 160 Catia Hamilton MD Jun 19, 2018 10:09
--- NOTE | 2018-06-19 11:47 | Diagnostic Imaging Report ---
Indication: Shortness of breath Technique: One view of the chest Comparison: 06/17/2018 Findings: There is a small left pleural effusion again demonstrated. The heart size is normal. The lungs and right pleural space are clear. Impression: Stable small left pleural effusion. No significant interim warp changer 2 days
[2018-06-19 12:00] VITALS: BP 124/90
--- NOTE | 2018-06-19 12:08 | Diagnostic Imaging Report ---
Indication: Abnormal liver function tests Technique: Walden-scale and duplex images of the upper abdomen were obtained. Doppler interrogation of the hepatic and pancreatic vessels Comparison: none Findings: Gallbladder is unremarkable, without stones, wall thickening, nor pericholecystic fluid. Sonographic Fagan's sign is negative. Common bile duct measures 4 mm in diameter. No intrahepatic biliary ductal dilatation. Liver demonstrates diffusely increased echogenicity, consistent with diffuse hepatocellular disease, most likely fatty change. Portal vein and hepatic veins are patent. Pancreas is unremarkable. Spleen is unremarkable. Left kidney measures 10.9 cm in length. Right kidney measures 11 cm length. Both kidneys demonstrate normal echogenicity. There is no hydronephrosis. No focal abnormality . The distal abdominal aorta is minimally ectatic, but not aneurysmal . Impression: Liver demonstrates diffusely increased echogenicity, consistent with diffuse hepatocellular disease, most likely fatty change. Negative for gallstones or dilated ducts
--- NOTE | 2018-06-19 12:20 | Consultation ---
History of Present Illness General Chief Complaint: Chest Pain Referring physician: dr Olmstead Reason for Consultation: chest pain Present Illness Allergies: Coded Allergies: No Known Allergies (Unverified , 06/16/18) Medication History Scheduled Aspirin Ec* (Aspirin Ec*), 81 MG ORAL DAILY, (Reported) Atorvastatin Calcium* (Atorvastatin Calcium*), 20 MG ORAL BEDTIME, (Reported) Levocarnitine (Levocarnitine), 990 MG ORAL THREE TIMES A DAY, (Reported) Losartan Potassium (Losartan Potassium), 25 MG ORAL DAILY, (Reported) Metoprolol Succinate* (Metoprolol Succinate*), 25 MG ORAL DAILY, (Reported) Omeprazole (Omeprazole), 20 MG ORAL DAILY, (Reported) Vitamin D (Vitamin D3), 2,000 UNITS ORAL DAILY, (Reported) Miscellaneous Medications Alendronate Sodium (Alendronate Sodium), 70 MG PO, (Reported) Dicyclomine Hcl (Dicyclomine Hcl), 20 MG PO, (Reported) Diphenoxylate Hcl/Atropine (Diphenoxylate-Atropine Tablet), 1 EACH PO, (Reported ) Levocarnitine (levOCARNitine), 5 MG PO, (Reported) Bandy-3S/Dha/Epa/Fish Oil (Vascazen Capsule), 1 EACH PO, (Reported) Patient History Healthcare decision maker Morrell Resuscitation status Full Code Advanced Directive on File Physical Exam Last 24 Hour Vital Signs Date Time Temp Pulse Resp B/P (MAP) Pulse Ox O2 Delivery O2 Flow Rate FiO2 06/19/18 09:00 Room Air 06/19/18 08:00 97.5 72 17 120/89 (99) 94 06/19/18 04:00 64 06/19/18 04:00 97.2 66 18 122/84 (97) 95 06/19/18 00:00 72 06/18/18 23:33 98.7 67 18 124/80 (95) 95 06/18/18 21:00 Room Air 06/18/18 20:00 98.6 75 18 111/72 (85) 95 06/18/18 20:00 74 06/18/18 18:00 60 06/18/18 16:00 98.7 64 20 113/78 (90) 100 Intake and Output 06/18/18 06/19/18 19:00 07:00 Intake Total 480 ml 480 ml Output Total 2000 ml 2000 ml Balance -1520 ml -1520 ml Intake Oral 480 ml 480 ml Output Urine Total 0 ml Other 2000 ml 2000 ml # Voids 3 2 Laboratory Tests Test 06/19/18 07:10 Sodium Level 139 MMOL/L (136-145) Potassium Level 4.0 MMOL/L (3.5-5.1) Chloride Level 106 MMOL/L (98-107) Carbon Dioxide Level 26 MMOL/L (21-32) Anion Gap 7 mmol/L (5-15) Blood Urea Nitrogen 15 mg/dL (7-18) Creatinine 0.7 MG/DL (0.55-1.30) Estimat Glomerular Filtration Rate > 60 mL/min (>60) Glucose Level 133 MG/DL (74-106) H Calcium Level 8.6 MG/DL (8.5-10.1) Total Bilirubin 0.8 MG/DL (0.2-1.0) Aspartate Amino Transf (AST/SGOT) 248 U/L (15-37) H Alanine Aminotransferase (ALT/SGPT) 1267 U/L (12-78) H Alkaline Phosphatase 334 U/L (46-116) H Total Protein 7.4 G/DL (6.4-8.2) Albumin 3.1 G/DL (3.4-5.0) L Globulin 4.3 g/dL Albumin/Globulin Ratio 0.7 (1.0-2.7) L Height (Feet): 5 Height (Inches): 5.00 Weight (Pounds): 160 Medications Current Medications Medications (Trade) Dose Ordered Sig/Eddie Route PRN Reason Start Time Stop Time Status Last Admin Dose Admin Acetaminophen (Tylenol) 650 mg Q4H PRN ORAL FEVER 06/16/18 07:15 07/16/18 07:14 06/17/18 23:10 Albuterol/ Ipratropium (Albuterol/ Ipratropium) 3 ml Q4H PRN HHN Shortness of Breath 06/16/18 07:15 06/21/18 07:14 Aspirin (ASA) 162 mg DAILY ORAL 06/16/18 09:00 07/16/18 08:59 06/18/18 09:28 Diltiazem HCl (Cardizem) 10 mg EVERY HOUR PRN IV heart rate more than 120, 06/16/18 07:15 07/16/18 07:14 Enalaprilat (Vasotec) 2.5 mg EVERY 6 HOURS PRN IV sbp more than 160 06/16/18 07:15 07/16/18 07:14 Guaifenesin (Robitussin) 100 mg Q4H PRN ORAL For Cough 06/17/18 13:00 07/17/18 12:59 06/17/18 22:04 Heparin Sodium (Porcine) (Heparin 5000 units/ml) 5,000 units EVERY 12 HOURS SUBQ 06/16/18 09:00 07/16/18 08:59 06/18/18 20:32 Ketorolac Tromethamine (Toradol 30mg) 30 mg Q6H PRN IV moderate pain ( 4-6) 06/16/18 07:15 06/21/18 07:14 Metoprolol Succinate (Toprol XL) 25 mg DAILY ORAL 06/17/18 09:00 07/17/18 08:59 06/18/18 10:15 Morphine Sulfate (Morphine Sulfate) 2 mg Q4H PRN IVP severe Pain (Pain Scale 7-10) 06/16/18 07:15 06/23/18 07:14 06/17/18 06:50 Nitroglycerin (Ntg) 0.4 mg Q5M PRN SL Prn Chest Pain 06/16/18 07:15 07/16/18 07:14 Ondansetron HCl (Zofran) 4 mg Q6H PRN IVP Nausea & Vomiting 06/16/18 07:15 07/16/18 07:14 Pantoprazole (Protonix) 40 mg EVERY 12 HOURS ORAL 06/17/18 09:00 07/17/18 08:59 06/18/18 20:32 Polyethylene Glycol (Miralax) 17 gm DAILYPRN PRN ORAL Constipation 06/16/18 07:15 07/16/18 07:14 Regadenoson (Lexiscan) 0.4 mg ONCE PRN IV STRESS TEST 06/19/18 06:00 06/21/18 05:59 Temazepam (Restoril) 15 mg HSPRN PRN ORAL Insomnia 06/16/18 07:15 06/23/18 07:14 Miko Jamison MD Jun 19, 2018 12:20
--- NOTE | 2018-06-19 13:21 | Pulmonology Progress Note ---
Assessment/Plan Problems: (1) ACS (acute coronary syndrome) (2) HTN (hypertension) (3) CAD S/P percutaneous coronary angioplasty Assessment/Plan stress testing pending US of abdomen is done f/u cardiology recommendations monitor BP symptomatic treatment dc if stress test negative Subjective ROS Limited/Unobtainable: No Constitutional: Reports: no symptoms HEENT: Repors: no symptoms Allergies: Coded Allergies: No Known Allergies (Unverified , 06/16/18) Objective Last 24 Hour Vital Signs Date Time Temp Pulse Resp B/P (MAP) Pulse Ox O2 Delivery O2 Flow Rate FiO2 06/19/18 12:00 97.9 72 19 124/90 (101) 98 06/19/18 09:00 Room Air 06/19/18 08:00 97.5 72 17 120/89 (99) 94 06/19/18 07:47 71 06/19/18 04:00 64 06/19/18 04:00 97.2 66 18 122/84 (97) 95 06/19/18 00:00 72 06/18/18 23:33 98.7 67 18 124/80 (95) 95 06/18/18 21:00 Room Air 06/18/18 20:00 98.6 75 18 111/72 (85) 95 06/18/18 20:00 74 06/18/18 18:00 60 06/18/18 16:00 98.7 64 20 113/78 (90) 100 Intake and Output 06/18/18 06/19/18 18:59 06:59 Intake Total 480 ml 480 ml Output Total 2000 ml 2000 ml Balance -1520 ml -1520 ml Intake Oral 480 ml 480 ml Output Urine Total 0 ml Other 2000 ml 2000 ml # Voids 3 2 General Appearance: WD/WN HEENT: normocephalic, atraumatic Respiratory/Chest: chest wall non-tender, lungs clear Breasts: no masses Cardiovascular: normal peripheral pulses, regularly irregular Abdomen: normal bowel sounds, soft, non tender Genitourinary: normal external genitalia Extremities: no clubbing Skin: no rash Laboratory Tests 06/19/18 07:10: Sodium Level 139, Potassium Level 4.0, Chloride Level 106, Carbon Dioxide Level 26, Anion Gap 7, Blood Urea Nitrogen 15, Creatinine 0.7, Estimat Glomerular Filtration Rate > 60, Glucose Level 133H, Calcium Level 8.6, Total Bilirubin 0.8 , Aspartate Amino Transf (AST/SGOT) 248H, Alanine Aminotransferase (ALT/SGPT) 1267H, Alkaline Phosphatase 334H, Total Protein 7.4, Albumin 3.1L, Globulin 4.3 , Albumin/Globulin Ratio 0.7L Current Medications Medications (Trade) Dose Ordered Sig/Eddie Route PRN Reason Start Time Stop Time Status Last Admin Dose Admin Acetaminophen (Tylenol) 650 mg Q4H PRN ORAL FEVER 06/16/18 07:15 07/16/18 07:14 06/17/18 23:10 Albuterol/ Ipratropium (Albuterol/ Ipratropium) 3 ml Q4H PRN HHN Shortness of Breath 06/16/18 07:15 06/21/18 07:14 Aspirin (ASA) 162 mg DAILY ORAL 06/16/18 09:00 07/16/18 08:59 06/18/18 09:28 Diltiazem HCl (Cardizem) 10 mg EVERY HOUR PRN IV heart rate more than 120, 06/16/18 07:15 07/16/18 07:14 Enalaprilat (Vasotec) 2.5 mg EVERY 6 HOURS PRN IV sbp more than 160 06/16/18 07:15 07/16/18 07:14 Guaifenesin (Robitussin) 100 mg Q4H PRN ORAL For Cough 06/17/18 13:00 07/17/18 12:59 06/17/18 22:04 Heparin Sodium (Porcine) (Heparin 5000 units/ml) 5,000 units EVERY 12 HOURS SUBQ 06/16/18 09:00 07/16/18 08:59 06/18/18 20:32 Ketorolac Tromethamine (Toradol 30mg) 30 mg Q6H PRN IV moderate pain ( 4-6) 06/16/18 07:15 06/21/18 07:14 Metoprolol Succinate (Toprol XL) 25 mg DAILY ORAL 06/17/18 09:00 07/17/18 08:59 06/18/18 10:15 Morphine Sulfate (Morphine Sulfate) 2 mg Q4H PRN IVP severe Pain (Pain Scale 7-10) 06/16/18 07:15 06/23/18 07:14 06/17/18 06:50 Nitroglycerin (Ntg) 0.4 mg Q5M PRN SL Prn Chest Pain 06/16/18 07:15 07/16/18 07:14 Ondansetron HCl (Zofran) 4 mg Q6H PRN IVP Nausea & Vomiting 06/16/18 07:15 07/16/18 07:14 Pantoprazole (Protonix) 40 mg EVERY 12 HOURS ORAL 06/17/18 09:00 07/17/18 08:59 06/18/18 20:32 Polyethylene Glycol (Miralax) 17 gm DAILYPRN PRN ORAL Constipation 06/16/18 07:15 07/16/18 07:14 Temazepam (Restoril) 15 mg HSPRN PRN ORAL Insomnia 06/16/18 07:15 06/23/18 07:14 Elzbieta Golden MD Jun 19, 2018 13:21
[2018-06-19 16:00] VITALS: BP 129/87
--- NOTE | 2018-06-19 16:23 | Diagnostic Imaging Report ---
Indications: Chest pain Technique: Single day single isotope protocol utilized. Initially, resting images obtained using IV administration 11 millicuries 99M technetium Myoview. Subsequently, patient underwent lexiscan stress testing. See cardiology report for details. During adenosine infusion, IV administration 32.5 mCi 99 M technetium Myoview. SPECT and planar images obtained. SPECT images gated to 8 phases of the cardiac cycle were also obtained, and reformatted into cine images for evaluation of ejection fraction. Comparison: none Findings: Per cardiology report, patient experienced no symptoms. Per cardiology report, resting EKG demonstrates normal sinus rhythm. No ST changes were demonstrated. Imaging demonstrates and apparent fixed inferolateral defect near the apex. This is small and likely artifactual due to soft tissue attenuation. No definite fixed nor reversible post stress perfusion defects are demonstrated. Calculated post stress ejection fraction 89%. No focal wall motion abnormality demonstrated Impression: Nonischemic clinical response to pharmacologic stress, per cardiology report Nonischemic electrocardiographic response to pharmacologic stress, per cardiology report No imaging findings to suggest ischemia, at level of stress achieved. Calculated post stress ejection fraction greater than 70%
--- NOTE | 2018-06-19 19:01 | Internal Med Progress Note ---
Subjective Date of Service: Jun 19, 2018 Physician Name Ralph Mayberry Attending Physician Santos Olmstead MD Current Medications Medications (Trade) Dose Ordered Sig/Eddie Route PRN Reason Start Time Stop Time Status Last Admin Dose Admin Acetaminophen (Tylenol) 650 mg Q4H PRN ORAL FEVER 06/16/18 07:15 07/16/18 07:14 06/17/18 23:10 Albuterol/ Ipratropium (Albuterol/ Ipratropium) 3 ml Q4H PRN HHN Shortness of Breath 06/16/18 07:15 06/21/18 07:14 Aspirin (ASA) 162 mg DAILY ORAL 06/16/18 09:00 07/16/18 08:59 06/18/18 09:28 Diltiazem HCl (Cardizem) 10 mg EVERY HOUR PRN IV heart rate more than 120, 06/16/18 07:15 07/16/18 07:14 Enalaprilat (Vasotec) 2.5 mg EVERY 6 HOURS PRN IV sbp more than 160 06/16/18 07:15 07/16/18 07:14 Guaifenesin (Robitussin) 100 mg Q4H PRN ORAL For Cough 06/17/18 13:00 07/17/18 12:59 06/17/18 22:04 Heparin Sodium (Porcine) (Heparin 5000 units/ml) 5,000 units EVERY 12 HOURS SUBQ 06/16/18 09:00 07/16/18 08:59 06/18/18 20:32 Ketorolac Tromethamine (Toradol 30mg) 30 mg Q6H PRN IV moderate pain ( 4-6) 06/16/18 07:15 06/21/18 07:14 Metoprolol Succinate (Toprol XL) 25 mg DAILY ORAL 06/17/18 09:00 07/17/18 08:59 06/18/18 10:15 Morphine Sulfate (Morphine Sulfate) 2 mg Q4H PRN IVP severe Pain (Pain Scale 7-10) 06/16/18 07:15 06/23/18 07:14 06/17/18 06:50 Nitroglycerin (Ntg) 0.4 mg Q5M PRN SL Prn Chest Pain 06/16/18 07:15 07/16/18 07:14 Ondansetron HCl (Zofran) 4 mg Q6H PRN IVP Nausea & Vomiting 06/16/18 07:15 07/16/18 07:14 Pantoprazole (Protonix) 40 mg EVERY 12 HOURS ORAL 06/17/18 09:00 07/17/18 08:59 06/18/18 20:32 Polyethylene Glycol (Miralax) 17 gm DAILYPRN PRN ORAL Constipation 06/16/18 07:15 07/16/18 07:14 Temazepam (Restoril) 15 mg HSPRN PRN ORAL Insomnia 06/16/18 07:15 06/23/18 07:14 Allergies: Coded Allergies: No Known Allergies (Unverified , 06/16/18) ROS Limited/Unobtainable: No Constitutional: Reports: no symptoms HEENT: Reports: no symptoms Cardiovascular: Reports: chest pain Respiratory: Reports: no symptoms Gastrointestinal/Abdominal: Reports: no symptoms Genitourinary: Reports: no symptoms Neurologic/Psychiatric: Reports: no symptoms Subjective 67 YO F admitted with chest pain. Cover for Int Med-Dr Olmstead. Objective Last Vital Signs Date Time Temp Pulse Resp B/P (MAP) Pulse Ox O2 Delivery O2 Flow Rate FiO2 06/19/18 16:00 98.3 91 20 129/87 (101) 98 06/19/18 09:00 Room Air 06/16/18 05:50 99 Laboratory Tests Test 06/19/18 07:10 Sodium Level 139 MMOL/L (136-145) Potassium Level 4.0 MMOL/L (3.5-5.1) Chloride Level 106 MMOL/L (98-107) Carbon Dioxide Level 26 MMOL/L (21-32) Anion Gap 7 mmol/L (5-15) Blood Urea Nitrogen 15 mg/dL (7-18) Creatinine 0.7 MG/DL (0.55-1.30) Estimat Glomerular Filtration Rate > 60 mL/min (>60) Glucose Level 133 MG/DL (74-106) H Calcium Level 8.6 MG/DL (8.5-10.1) Total Bilirubin 0.8 MG/DL (0.2-1.0) Aspartate Amino Transf (AST/SGOT) 248 U/L (15-37) H Alanine Aminotransferase (ALT/SGPT) 1267 U/L (12-78) H Alkaline Phosphatase 334 U/L (46-116) H Total Protein 7.4 G/DL (6.4-8.2) Albumin 3.1 G/DL (3.4-5.0) L Globulin 4.3 g/dL Albumin/Globulin Ratio 0.7 (1.0-2.7) L Intake and Output 06/18/18 06/19/18 18:59 06:59 Intake Total 480 ml 480 ml Output Total 2000 ml 2000 ml Balance -1520 ml -1520 ml Intake Oral 480 ml 480 ml Output Urine Total 0 ml Other 2000 ml 2000 ml # Voids 3 2 Objective Objective General: No acute distress, awake and alert HEENT: NCAT, sclera anicteric, PERRL, EOMI. Neck: Supple, no significant jugular venous distention, Lungs: Good inspiratory effort, Bilateral air entry, no Wheeze or Rales. Heart: Regular rate and rhythm, normal S1/S2, no murmurs/gallops Abdomen: soft, nontender, nondistended. Normoactive bowel sounds. / Rectal: Refused and deferred. Extremities: No Cyanosis , clubbing or edema. Neuro: A&O x 3, Able to move all extremities Skin: warm, no rashes or lesions Psych: Normal mood and affect Assessment/Plan Assessment/Plan Assessment/Plan Assessment/Plan 1. Chest pain, possible acute coronary syndrome. 2. Coronary artery disease, status post PTCA with stent placement. 3. Dyslipidemia. 4. Hypertension. 5. Abnormal LFT PLAN: In monitored unit. Follow up laboratory in AM Dr. Earl Melendez from Cardiology Dr. Golden from Pulmonary / critical care. Code status: Full Code. DVT prophylaxis: Heparin subcutaneous. Await stress test results US abdomen GI consult with Dr. Hamilton Hold Lipitor. Ralph Mayberry MD Jun 19, 2018 19:01
--- NOTE | 2018-06-19 19:18 | Cardiology Progress Note ---
Assessment/Plan Assessment/Plan 1. Chest pains. 2. Dyspnea on exertion. 3. History of venous issues. 4. Abnormal LFTS dc statin for now in light of elevated lfts stress test neg for perfusion abn repeat lfts are better but stioll abn Subjective Cardiovascular: Denies: chest pain Respiratory: Denies: shortness of breath Gastrointestinal/Abdominal: Denies: abdominal pain Genitourinary: Denies: burning Objective Last 24 Hour Vital Signs Date Time Temp Pulse Resp B/P (MAP) Pulse Ox O2 Delivery O2 Flow Rate FiO2 06/19/18 16:00 98.3 91 20 129/87 (101) 98 06/19/18 15:29 91 06/19/18 12:00 97.9 72 19 124/90 (101) 98 06/19/18 11:59 72 06/19/18 09:00 Room Air 06/19/18 08:00 97.5 72 17 120/89 (99) 94 06/19/18 07:47 71 06/19/18 04:00 64 06/19/18 04:00 97.2 66 18 122/84 (97) 95 06/19/18 00:00 72 06/18/18 23:33 98.7 67 18 124/80 (95) 95 06/18/18 21:00 Room Air 06/18/18 20:00 98.6 75 18 111/72 (85) 95 06/18/18 20:00 74 General Appearance: no apparent distress, alert Neck: normal alignment Cardiovascular: normal rate, regular rhythm Respiratory/Chest: lungs clear Abdomen: non tender, soft Extremities: no swelling Intake and Output 06/18/18 06/19/18 18:59 06:59 Intake Total 480 ml 480 ml Output Total 2000 ml 2000 ml Balance -1520 ml -1520 ml Intake Oral 480 ml 480 ml Output Urine Total 0 ml Other 2000 ml 2000 ml # Voids 3 2 Laboratory Tests Test 06/19/18 07:10 Sodium Level 139 MMOL/L (136-145) Potassium Level 4.0 MMOL/L (3.5-5.1) Chloride Level 106 MMOL/L (98-107) Carbon Dioxide Level 26 MMOL/L (21-32) Anion Gap 7 mmol/L (5-15) Blood Urea Nitrogen 15 mg/dL (7-18) Creatinine 0.7 MG/DL (0.55-1.30) Estimat Glomerular Filtration Rate > 60 mL/min (>60) Glucose Level 133 MG/DL (74-106) H Calcium Level 8.6 MG/DL (8.5-10.1) Total Bilirubin 0.8 MG/DL (0.2-1.0) Aspartate Amino Transf (AST/SGOT) 248 U/L (15-37) H Alanine Aminotransferase (ALT/SGPT) 1267 U/L (12-78) H Alkaline Phosphatase 334 U/L (46-116) H Total Protein 7.4 G/DL (6.4-8.2) Albumin 3.1 G/DL (3.4-5.0) L Globulin 4.3 g/dL Albumin/Globulin Ratio 0.7 (1.0-2.7) L Earl Melendez MD Jun 19, 2018 19:18
[2018-06-19 20:00] VITALS: BP 106/77
--- NOTE | 2018-06-19 20:00 | Consultation ---
DATE OF CONSULTATION: 06/19/2018 GASTROENTEROLOGY CONSULTATION CHIEF COMPLAINT: I was asked to see this patient for evaluation of abnormal liver tests. HISTORY OF PRESENT ILLNESS: The patient is a 67-year-old Polish-speaking woman, who was brought in to the hospital with epigastric abdominal pain and chest pain. The patient apparently came on 06/16/2018 complaining of chest pain associated with shortness of breath. The patient also pointed to the mid sternal area and suddenly the pain radiated to the back. When the paramedics were called and nitroglycerin and aspirin were given, there was some degree of improvement and therefore, the patient is being evaluated by Cardiology for cardiac pathology explaining the symptoms. In the meantime, however, blood tests were drawn. Initially on 06/16/2018 when the patient came in, there was some mild degree of transaminitis with an AST of 67 and alkaline phosphatase of 175. Bilirubin was normal. The CKMB was negative. Two days later, on 06/18/2018, however, there was a significant rise in the liver tests with AST being 673 and ALT 1942 with the bilirubin being 1.1. The patient is now scheduled to have an abdominal ultrasound as well as a nuclear medicine myocardial perfusion study. PAST MEDICAL HISTORY: Remarkable for history of hypertension, history for dyslipidemia, and history of coronary artery disease, status post coronary artery stent placement 10 years ago. MEDICATIONS: See the chart list for details. ALLERGIES: None. FAMILY HISTORY: Noncontributory. SOCIAL HISTORY: The patient is Polish and has had no chart reports of smoking or drinking. REVIEW OF SYSTEMS: Otherwise negative. PHYSICAL EXAMINATION: GENERAL: A pleasant elderly Polish woman, seen in her room. HEENT: Normocephalic and atraumatic. Sclerae anicteric. Oropharynx clear. NECK: Supple. CHEST: Clear to auscultation. CARDIOVASCULAR: Revealed a regular rate. ABDOMEN: Soft. Good bowel sounds. There no organomegaly or significant tenderness. EXTREMITIES: Revealed no edema. LABORATORY DATA: Noted. ASSESSMENT: This patient presents with atypical chest pain. The patient is being evaluated by the Cardiology service especially in view of the patient's old coronary artery disease. In addition, however, the patient has an abrupt climb in her liver panel in a pattern, which is highly suggestive of acute biliary obstruction or poor passage of the stone. Another possibility would be hypotension and shock, but the patient does not have any historical finding to support this diagnosis. Viral hepatitis can also make liver tests go up, but not in an abrupt fashion. The patient, however, should be checked for any underlying liver disease. RECOMMENDATIONS: 1. Check hepatitis B and C underlying liver disease. 2. Await abdominal ultrasound. 3. May need to consider HIDA scanning. Thank you for asking me to participate in the care of this patient. Catia Hamilton M.D. DR: EDGAR JOB#: [id number] CC:
[2018-06-20] VITALS: BP 114/86
[2018-06-20] MEDS ORDERED: Nitroglycerin Subl 0.4mg tab SL PRN (00:45)
[2018-06-20] MEDS ORDERED: Albuterol/Ipratropium 3ml neb HHN PRN (01:00)
[2018-06-20] MEDS ORDERED: Morphine Sulfate 4mg/ml Inj (IV/IM USE ONLY) IVP PRN (01:00)
[2018-06-20] MEDS ORDERED: dilTIAZem HCl 25mg/5ml Inj IV PRN (01:00)
[2018-06-20] MEDS ORDERED: guaiFENesin 100mg/5ml Liq ud ORAL PRN (01:00)
[2018-06-20] MEDS ORDERED: Ketorolac 30mg Inj IV PRN (01:15)
[2018-06-20 04:13] VITALS: BP 114/78
[2018-06-20] MEDS ORDERED: Enalaprilat 2.5mg/2ml Inj IV PRN (06:00)
[2018-06-20] MEDS ORDERED: Miralax 17gm pkt ORAL PRN (07:15)
[2018-06-20 08:00] VITALS: BP 117/91
[2018-06-20] MEDS ORDERED: Heparin 5000 units/ml inj SUBQ SCH (09:00)
[2018-06-20] MEDS ORDERED: Aspirin Baby 81mg ORAL SCH (09:00)
[2018-06-20] MEDS ORDERED: Metoprolol Succinate XL 25mg tab ORAL SCH (09:00)
[2018-06-20 10:31] LABS: EOSINOPHILS % (AUTO) 1.2 % (0.0-3.0); HEMATOCRIT 41.8 % (37.0-47.0); HEMOGLOBIN 14.1 G/DL (12.0-16.0); LYMPHOCYTES % (AUTO) 17.2 % (20.0-45.0); MEAN CORPUSCULAR VOLUME 92 FL (80-99); MONOCYTES % (AUTO) 8.8 % (1.0-10.0); NEUTROPHILS % (AUTO) 71.7 % (45.0-75.0); PLATELET COUNT 239 K/UL (150-450); RED BLOOD COUNT 4.52 M/UL (4.20-5.40); RED CELL DISTRIBUTION WIDTH 10.9 % (11.6-14.8); WHITE BLOOD COUNT 10.5 K/UL (4.8-10.8)
[2018-06-20 10:50] LABS: ANION GAP 9 mmol/L (5-15); BLOOD UREA NITROGEN 19 mg/dL (7-18); CALCIUM 8.7 MG/DL (8.5-10.1); CARBON DIOXIDE 25 MMOL/L (21-32); CHLORIDE 103 MMOL/L (98-107); CREATININE 0.8 MG/DL (0.55-1.30); POTASSIUM 3.7 MMOL/L (3.5-5.1); SODIUM 137 MMOL/L (136-145)
[2018-06-20 12:00] VITALS: BP 126/72
--- NOTE | 2018-06-20 13:11 | Pulmonology Progress Note ---
Assessment/Plan Problems: (1) ACS (acute coronary syndrome) (2) HTN (hypertension) (3) CAD S/P percutaneous coronary angioplasty Assessment/Plan stress testing negative US of abdomen showed fatty liver f/u cardiology recommendations monitor BP symptomatic treatment dc if stress test negative Subjective ROS Limited/Unobtainable: No Constitutional: Reports: no symptoms HEENT: Repors: no symptoms Respiratory: Reports: no symptoms Allergies: Coded Allergies: No Known Allergies (Unverified , 06/16/18) Objective Last 24 Hour Vital Signs Date Time Temp Pulse Resp B/P (MAP) Pulse Ox O2 Delivery O2 Flow Rate FiO2 06/20/18 09:00 Room Air 06/20/18 08:44 94 117/91 06/20/18 08:00 97.8 94 18 117/91 (100) 98 06/20/18 04:13 97.7 71 18 114/78 (90) 98 06/20/18 00:00 97.2 77 16 114/86 (95) 93 06/19/18 21:00 Room Air 06/19/18 20:00 96 06/19/18 20:00 97.5 89 16 106/77 (87) 93 06/19/18 16:00 98.3 91 20 129/87 (101) 98 06/19/18 15:29 91 Intake and Output 06/19/18 06/20/18 19:00 07:00 Intake Total 550 ml 120 ml Balance 550 ml 120 ml Intake Oral 550 ml 120 ml # Voids 2 1 General Appearance: WD/WN HEENT: normocephalic, atraumatic Respiratory/Chest: chest wall non-tender, lungs clear Breasts: no masses Cardiovascular: normal peripheral pulses, regularly irregular Abdomen: normal bowel sounds, soft, non tender Extremities: no clubbing Skin: no rash Laboratory Tests 06/20/18 10:15: White Blood Count 10.5, Red Blood Count 4.52, Hemoglobin 14.1, Hematocrit 41.8, Mean Corpuscular Volume 92, Mean Corpuscular Hemoglobin 31.2H, Mean Corpuscular Hemoglobin Concent 33.7, Red Cell Distribution Width 10.9L, Platelet Count 239, Mean Platelet Volume 6.3L, Neutrophils (%) (Auto) 71.7, Lymphocytes (%) (Auto) 17.2L, Monocytes (%) (Auto) 8.8, Eosinophils (%) (Auto) 1.2, Basophils (%) (Auto ) 1.0, Sodium Level 137, Potassium Level 3.7, Chloride Level 103, Carbon Dioxide Level 25, Anion Gap 9, Blood Urea Nitrogen 19H, Creatinine 0.8, Estimat Glomerular Filtration Rate > 60, Glucose Level 207H, Calcium Level 8.7 Current Medications Medications (Trade) Dose Ordered Sig/Eddie Route PRN Reason Start Time Stop Time Status Last Admin Dose Admin Acetaminophen (Tylenol) 650 mg Q4H PRN ORAL FEVER 06/20/18 01:00 07/16/18 00:59 Albuterol/ Ipratropium (Albuterol/ Ipratropium) 3 ml Q4H PRN HHN Shortness of Breath 06/20/18 01:00 06/21/18 00:59 Aspirin (ASA) 162 mg DAILY ORAL 06/20/18 09:00 07/16/18 08:59 06/20/18 08:44 Enalaprilat (Vasotec) 2.5 mg EVERY 6 HOURS PRN IV sbp more than 160 06/20/18 06:00 07/16/18 07:14 Guaifenesin (Robitussin) 100 mg Q4H PRN ORAL For Cough 06/20/18 01:00 07/17/18 12:59 Heparin Sodium (Porcine) (Heparin 5000 units/ml) 5,000 units EVERY 12 HOURS SUBQ 06/20/18 09:00 07/16/18 08:59 06/20/18 08:46 Ketorolac Tromethamine (Toradol 30mg) 30 mg Q6H PRN IV moderate pain ( 4-6) 06/20/18 01:15 06/25/18 01:14 Metoprolol Succinate (Toprol XL) 25 mg DAILY ORAL 06/20/18 09:00 07/17/18 08:59 06/20/18 08:44 Morphine Sulfate (Morphine Sulfate) 2 mg Q4H PRN IVP severe Pain (Pain Scale 7-10) 06/20/18 01:00 06/23/18 00:59 Nitroglycerin (Ntg) 0.4 mg Q5M PRN SL Prn Chest Pain 06/20/18 00:45 07/16/18 07:14 Ondansetron HCl (Zofran) 4 mg Q6H PRN IVP Nausea & Vomiting 06/20/18 01:15 07/16/18 07:14 Pantoprazole (Protonix) 40 mg EVERY 12 HOURS ORAL 06/20/18 09:00 07/17/18 08:59 06/20/18 08:44 Polyethylene Glycol (Miralax) 17 gm DAILYPRN PRN ORAL Constipation 06/20/18 07:15 07/16/18 07:14 Temazepam (Restoril) 15 mg HSPRN PRN ORAL Insomnia 06/20/18 07:15 06/23/18 07:14 Elzbieta Golden MD Jun 20, 2018 13:11
--- NOTE | 2018-06-20 13:57 | Cardiology Progress Note ---
Assessment/Plan Assessment/Plan 1. Chest pains. 2. Dyspnea on exertion. 3. History of venous issues. 4. Abnormal LFTS dc statin for now in light of elevated lfts stress test neg for perfusion abn gi borden noted has goen for hida scan Subjective ROS Limited/Unobtainable: Yes Objective Last 24 Hour Vital Signs Date Time Temp Pulse Resp B/P (MAP) Pulse Ox O2 Delivery O2 Flow Rate FiO2 06/20/18 12:00 98.0 81 18 126/72 (90) 95 06/20/18 09:00 Room Air 06/20/18 08:44 94 117/91 06/20/18 08:00 97.8 94 18 117/91 (100) 98 06/20/18 04:13 97.7 71 18 114/78 (90) 98 06/20/18 00:00 97.2 77 16 114/86 (95) 93 06/19/18 21:00 Room Air 06/19/18 20:00 96 06/19/18 20:00 97.5 89 16 106/77 (87) 93 06/19/18 16:00 98.3 91 20 129/87 (101) 98 06/19/18 15:29 91 General Appearance: no apparent distress Intake and Output 06/19/18 06/20/18 19:00 07:00 Intake Total 550 ml 120 ml Balance 550 ml 120 ml Intake Oral 550 ml 120 ml # Voids 2 1 Laboratory Tests Test 06/20/18 10:15 White Blood Count 10.5 K/UL (4.8-10.8) Red Blood Count 4.52 M/UL (4.20-5.40) Hemoglobin 14.1 G/DL (12.0-16.0) Hematocrit 41.8 % (37.0-47.0) Mean Corpuscular Volume 92 FL (80-99) Mean Corpuscular Hemoglobin 31.2 PG (27.0-31.0) H Mean Corpuscular Hemoglobin Concent 33.7 G/DL (32.0-36.0) Red Cell Distribution Width 10.9 % (11.6-14.8) L Platelet Count 239 K/UL (150-450) Mean Platelet Volume 6.3 FL (6.5-10.1) L Neutrophils (%) (Auto) 71.7 % (45.0-75.0) Lymphocytes (%) (Auto) 17.2 % (20.0-45.0) L Monocytes (%) (Auto) 8.8 % (1.0-10.0) Eosinophils (%) (Auto) 1.2 % (0.0-3.0) Basophils (%) (Auto) 1.0 % (0.0-2.0) Sodium Level 137 MMOL/L (136-145) Potassium Level 3.7 MMOL/L (3.5-5.1) Chloride Level 103 MMOL/L (98-107) Carbon Dioxide Level 25 MMOL/L (21-32) Anion Gap 9 mmol/L (5-15) Blood Urea Nitrogen 19 mg/dL (7-18) H Creatinine 0.8 MG/DL (0.55-1.30) Estimat Glomerular Filtration Rate > 60 mL/min (>60) Glucose Level 207 MG/DL (74-106) H Calcium Level 8.7 MG/DL (8.5-10.1) Earl Melendez MD Jun 20, 2018 13:57
--- NOTE | 2018-06-20 15:17 | Cardiology Report ---
APPROVED REPORT EKG Measurement Heart [id number] Normal sinus rhythm Normal ECG
--- NOTE | 2018-06-20 15:22 | Diagnostic Imaging Report ---
Indications: Abnormal liver function tests Technique: IV administration 5.5 mCi 99 M technetium Choletec. Serial images obtained over the abdomen for one hour Comparison: None Findings: Prompt tracer uptake within the liver. Extrahepatic bile ducts are seen at for minutes. Excretion into the duodenum demonstrated at 40 minutes. Gallbladder visualized at 7 minutes. Impression: Negative. No evidence of cystic duct obstruction or common bile duct obstruction
[2018-06-20 16:00] VITALS: BP 133/74
--- NOTE | 2018-06-20 17:21 | Internal Med Progress Note ---
Subjective Date of Service: Jun 20, 2018 Physician Name Ralph Mayberry Attending Physician Santos Olmstead MD Allergies: Coded Allergies: No Known Allergies (Unverified , 06/16/18) ROS Limited/Unobtainable: No Constitutional: Reports: no symptoms HEENT: Reports: no symptoms Cardiovascular: Reports: no symptoms Respiratory: Reports: no symptoms Gastrointestinal/Abdominal: Reports: no symptoms Genitourinary: Reports: no symptoms Neurologic/Psychiatric: Reports: no symptoms Subjective 67 YO F admitted with chest pain. Cover for Int Med-Dr Olmstead. Objective Last Vital Signs Date Time Temp Pulse Resp B/P (MAP) Pulse Ox O2 Delivery O2 Flow Rate FiO2 06/20/18 16:00 97.8 78 20 133/74 (93) 99 06/20/18 09:00 Room Air 06/16/18 05:50 99 Laboratory Tests Test 06/20/18 10:15 White Blood Count 10.5 K/UL (4.8-10.8) Red Blood Count 4.52 M/UL (4.20-5.40) Hemoglobin 14.1 G/DL (12.0-16.0) Hematocrit 41.8 % (37.0-47.0) Mean Corpuscular Volume 92 FL (80-99) Mean Corpuscular Hemoglobin 31.2 PG (27.0-31.0) H Mean Corpuscular Hemoglobin Concent 33.7 G/DL (32.0-36.0) Red Cell Distribution Width 10.9 % (11.6-14.8) L Platelet Count 239 K/UL (150-450) Mean Platelet Volume 6.3 FL (6.5-10.1) L Neutrophils (%) (Auto) 71.7 % (45.0-75.0) Lymphocytes (%) (Auto) 17.2 % (20.0-45.0) L Monocytes (%) (Auto) 8.8 % (1.0-10.0) Eosinophils (%) (Auto) 1.2 % (0.0-3.0) Basophils (%) (Auto) 1.0 % (0.0-2.0) Sodium Level 137 MMOL/L (136-145) Potassium Level 3.7 MMOL/L (3.5-5.1) Chloride Level 103 MMOL/L (98-107) Carbon Dioxide Level 25 MMOL/L (21-32) Anion Gap 9 mmol/L (5-15) Blood Urea Nitrogen 19 mg/dL (7-18) H Creatinine 0.8 MG/DL (0.55-1.30) Estimat Glomerular Filtration Rate > 60 mL/min (>60) Glucose Level 207 MG/DL (74-106) H Calcium Level 8.7 MG/DL (8.5-10.1) Intake and Output 06/19/18 06/20/18 18:59 06:59 Intake Total 550 ml 120 ml Balance 550 ml 120 ml Intake Oral 550 ml 120 ml # Voids 2 1 Objective Objective General: No acute distress, awake and alert HEENT: NCAT, sclera anicteric, PERRL, EOMI. Neck: Supple, no significant jugular venous distention, Lungs: Good inspiratory effort, Bilateral air entry, no Wheeze or Rales. Heart: Regular rate and rhythm, normal S1/S2, no murmurs/gallops Abdomen: soft, nontender, nondistended. Normoactive bowel sounds. / Rectal: Refused and deferred. Extremities: No Cyanosis , clubbing or edema. Neuro: A&O x 3, Able to move all extremities Skin: warm, no rashes or lesions Psych: Normal mood and affect Assessment/Plan Assessment/Plan Assessment/Plan Assessment/Plan 1. Chest pain, possible acute coronary syndrome. 2. Coronary artery disease, status post PTCA with stent placement. 3. Dyslipidemia. 4. Hypertension. 5. Abnormal LFT PLAN: In monitored unit. Follow up laboratory in AM Dr. Earl Melendez from Cardiology Dr. Golden from Pulmonary / critical care. Code status: Full Code. DVT prophylaxis: Heparin subcutaneous. Await stress test results US abdomen GI consult with Dr. Joy Mckenna Lipitor. Discharge home today Ralph Mayberry MD Jun 20, 2018 17:21
--- NOTE | 2018-06-20 20:59 | General Progress Note ---
Assessment/Plan Assessment/Plan Assessment - Abrupt symptomatic rise in LFT, suggestive of passed gallstone - LFT now declining (no LFT today) - CAD Recommendations - Cardiology evaluation - Follow LFT - Await abd Ultrasound --> fatty liver - Check HIDA - negative - check hepatitis serologies and CK total - add LFT to am labs for today Subjective Allergies: Coded Allergies: No Known Allergies (Unverified , 06/16/18) Subjective Patient seen this am Above noted eating OK no abdominal pain HIDA noted Objective Last 24 Hour Vital Signs Date Time Temp Pulse Resp B/P (MAP) Pulse Ox O2 Delivery O2 Flow Rate FiO2 06/20/18 16:00 97.8 78 20 133/74 (93) 99 06/20/18 12:00 98.0 81 18 126/72 (90) 95 06/20/18 09:00 Room Air 06/20/18 08:44 94 117/91 06/20/18 08:00 97.8 94 18 117/91 (100) 98 06/20/18 04:13 97.7 71 18 114/78 (90) 98 06/20/18 00:00 97.2 77 16 114/86 (95) 93 06/19/18 21:00 Room Air Intake and Output 06/19/18 06/20/18 18:59 06:59 Intake Total 550 ml 120 ml Balance 550 ml 120 ml Intake Oral 550 ml 120 ml # Voids 2 1 Laboratory Tests 06/20/18 10:15: White Blood Count 10.5, Red Blood Count 4.52, Hemoglobin 14.1, Hematocrit 41.8, Mean Corpuscular Volume 92, Mean Corpuscular Hemoglobin 31.2H, Mean Corpuscular Hemoglobin Concent 33.7, Red Cell Distribution Width 10.9L, Platelet Count 239, Mean Platelet Volume 6.3L, Neutrophils (%) (Auto) 71.7, Lymphocytes (%) (Auto) 17.2L, Monocytes (%) (Auto) 8.8, Eosinophils (%) (Auto) 1.2, Basophils (%) (Auto ) 1.0, Sodium Level 137, Potassium Level 3.7, Chloride Level 103, Carbon Dioxide Level 25, Anion Gap 9, Blood Urea Nitrogen 19H, Creatinine 0.8, Estimat Glomerular Filtration Rate > 60, Glucose Level 207H, Calcium Level 8.7 Height (Feet): 5 Height (Inches): 5.00 Weight (Pounds): 160 Objective WDWN NCAT supple CTA RR abd soft, NT, ND no edema non focal Catia Hamilton MD Jun 20, 2018 20:59
[2018-06-20 21:14] LABS: ALANINE AMINOTRANSFERASE 884 U/L (12-78); ALBUMIN 3.2 G/DL (3.4-5.0); ALKALINE PHOSPHATASE 290 U/L (46-116); ASPARTATE AMINO TRANSFERASE 95 U/L (15-37); BILIRUBIN,DIRECT 0.3 MG/DL (0.0-0.3); BILIRUBIN,TOTAL 0.6 MG/DL (0.2-1.0)
--- NOTE | 2018-06-20 23:41 | General Progress Note ---
Assessment/Plan Status: stable, progressing Assessment/Plan anxiety d/o cont current meds provided ro/st Subjective Date patient seen: Jun 20, 2018 Neurologic/Psychiatric: Reports: anxiety, depressed, emotional problems Allergies: Coded Allergies: No Known Allergies (Unverified , 06/16/18) Objective Last 24 Hour Vital Signs Date Time Temp Pulse Resp B/P (MAP) Pulse Ox O2 Delivery O2 Flow Rate FiO2 06/20/18 16:00 97.8 78 20 133/74 (93) 99 06/20/18 12:00 98.0 81 18 126/72 (90) 95 06/20/18 09:00 Room Air 06/20/18 08:44 94 117/91 06/20/18 08:00 97.8 94 18 117/91 (100) 98 06/20/18 04:13 97.7 71 18 114/78 (90) 98 06/20/18 00:00 97.2 77 16 114/86 (95) 93 Intake and Output 06/19/18 06/20/18 18:59 06:59 Intake Total 550 ml 120 ml Balance 550 ml 120 ml Intake Oral 550 ml 120 ml # Voids 2 1 Laboratory Tests 06/20/18 10:15: White Blood Count 10.5, Red Blood Count 4.52, Hemoglobin 14.1, Hematocrit 41.8, Mean Corpuscular Volume 92, Mean Corpuscular Hemoglobin 31.2H, Mean Corpuscular Hemoglobin Concent 33.7, Red Cell Distribution Width 10.9L, Platelet Count 239, Mean Platelet Volume 6.3L, Neutrophils (%) (Auto) 71.7, Lymphocytes (%) (Auto) 17.2L, Monocytes (%) (Auto) 8.8, Eosinophils (%) (Auto) 1.2, Basophils (%) (Auto ) 1.0, Sodium Level 137, Potassium Level 3.7, Chloride Level 103, Carbon Dioxide Level 25, Anion Gap 9, Blood Urea Nitrogen 19H, Creatinine 0.8, Estimat Glomerular Filtration Rate > 60, Glucose Level 207H, Calcium Level 8.7, Total Bilirubin 0.6, Direct Bilirubin 0.3, Aspartate Amino Transf (AST/SGOT) 95H, Alanine Aminotransferase (ALT/SGPT) 884H, Alkaline Phosphatase 290H, Total Protein 7.4, Albumin 3.2L Height (Feet): 5 Height (Inches): 5.00 Weight (Pounds): 160 General Appearance: no apparent distress, alert Neurologic: oriented x 3, responsive, depressed affect Miko Jamison MD Jun 20, 2018 23:41
--- NOTE | 2018-06-22 09:27 | Discharge Summary ---
Discharge Summary Discharge Summary _ DATE OF ADMISSION: June 16, 2018 DATE OF DISCHARGE: June 20, 2018 DISCHARGED BY: Dr. Olmstead REASON FOR ADMISSION: 67 years old female with past medical history of hypertension, hyperlipidemia, coronary artery disease ,status post PTCA with stent placement about 10 years ago, presented to emergency department complaint of chest pain. Pain located in the mid chest and radiated to the back , described as sharp, 8 out of 10 on a scale of 1-10. En route to the hospital , she received nitroglycerin and aspirin with improvement in pain. Patient denied fevers, chills, nausea ,vomiting, Upon evaluation vital signs were stable. Laboratory workup revealed mild leukocytosis 11.7 , stable hemoglobin hematocrit. Troponin was negative. EKG revealed normal sinus rhythm, no acute ischemic changes. Stable electrolytes. BUN 21, creatinine 0.6. AST 57. Chest x-ray revealed vascular congestion and mild interstitial edema . Patient was admitted for further management with diagnosis of chest pain, rule out acute coronary syndrome CONSULTANTS: gluing machine feeder Dr. Melendez pulmonary Dr. Golden GI specialist dr. Hamilton psychiatrist [facility] COURSE: Patient admitted to telemetry floor. Serial troponin were negative. EKG revealed no acute ischemic changes. Cap Blocker followed. Patient was ruled out for acute myocardial infarction. Echocardiogram revealed preserved ejection fraction, mild left ventricular atrophy and right ventricular systolic pressure ,of 46 consistent with moderate pulmonary hypertension. No wall motion abnormalities noted. Pro BNP 109. Patient was on aspirin , beta jose and statin. Lipid panel was stable. Nitroglycerin was provided as needed. Patient undergone nuclear myocardial perfusion stress test, which was nonischemic . Calculated ejection fraction was greater than 70%. Venous Duplex of bilateral lower extremity revealed no evidence of acute DVT. Blood pressure was managed with beta-jose and remained stable. Supplemental oxygen provided as needed to keep pulse oximetry above 92%. Pulmonary toilet was on board as needed. DVT and GI prophylaxis provided. TSH was within normal limits. Hemoglobin A1c 5.9. On 06/18 noted abrupt rise in LFTs: AST 673, ALT 1942. GI consult was requested. Statin was discontinued in view of elevated LFT. Per GI specialist symptomatic abrupt rise in LFT was suggestive of possible passed stone . LFT were trending down . Abdominal ultrasound revealed diffuse increased liver echogenicity, consistent with diffuse disease , most likely fatty changes. Negative for gallstones or dilated ducts. HIDA scan was negative. No evidence of cystic duct or common bile duct obstruction . Prior to discharge AST from the highest score 673 down to 95 and ALT respectively from 1942 down to 884. Psychiatrist followed. Reality orientation and supportive therapy provided. Anxiolytic were on board as needed. Patient clinically improved. No further chest pain, LFT trending down . Patient was stable for discharge home. Outpatient follow up with primary care provider. FINAL DIAGNOSES: Chest pain, possibly due to anxiety disorder Coronary artery disease , s/p PTCA with stent placement Hypertension Hyperlipidemia Mild dehydration Fatty liver Abrupt symptomatic transaminitis , probably due to passed gallstone Anxiety disorder DISCHARGE MEDICATIONS: See Medication Reconciliation list. DISCHARGE INSTRUCTIONS: Patient was discharged home . Follow up with primary care provider in one week. Charlene Warner NP Jun 22, 2018 09:27
== END 2018-06-20 17:04 | disposition home or self-care (01) | DRG 313 ==
LOC: EDBD 05:47 → EMR 06:04 → 2E 06:06 → EDBEDREQ 08:22 → 4E 06-20 00:50
DX: R07.89 Other chest pain (principal); F41.9 Anxiety disorder, unspecified; I10 Essential (primary) hypertension; E78.5 Hyperlipidemia, unspecified; E86.0 Dehydration; K76.0 Fatty (change of) liver, not elsewhere classified; R74.0 Nonspecific elevation of levels of transaminase and lactic acid dehydrogenase [LDH]; I25.10 Atherosclerotic heart disease of native coronary artery without angina pectoris; Z95.5 Presence of coronary angioplasty implant and graft; Z79.82 Long term (current) use of aspirin
CPT/HCPCS: 36415; 71045; 76700; 78266; 78452; 80048; 80053; 80061; 80076; 82248; 82550; 82553; 82962; 83036; 83880; 84443; 84484; 85025; 85610; 85730; 86140; 93005; 93017; 93306; 93970; 99285; J2405; J2785